=== PATIENT | male | born 1990 | race Caucasian/White ===

== ENCOUNTER 2021-01-01 09:55 | Inpatient (IN) | payer SELFPAY ==
[2021-01-01 10:08] VITALS: BP 147/90; PULSE 63; RESP 15; TEMP 36.6; O2SAT 97; BMI 21.1
[2021-01-01 10:20] VITALS: O2SAT 98
--- NOTE | 2021-01-01 10:26 | W.ED.PSYCH ---
HPI - Psych General: Chief Complaint: Psychiatric Symptoms Stated Complaint: MHE Time Seen by Provider: 01/01/21 10:11 Source: patient and family Mode of arrival: ambulatory Limitations: no limitations History of Present Illness: HPI Narrative: Patient is a 30-year-old male who presents to ED today with a complaint of depression and hallucinations. Patient tells me he takes Effexor for his depression but feels it is no longer working. He states he does have thoughts of wanting to harm himself. He states he often thinks of ways he could but always redirects himself away from the thoughts . He has no previous attempts. He has a diagnosis of schizophrenia and is not taking his risperidone as he did not like the medication. He does report auditory hallucinations of voices telling him to do stupid stuff . He tells me he does have homicidal thoughts-not toward any specific individual. Admits to marijuana use but no other drug use. No alcohol use. Patient tells me he is recently from his significant other whom he has children with. They are currently living in [place] and patient is here and is having significant stress over not seeing his children. MD complaint: suicidal ideation and feels depressed Onset (ago): day(s) Duration: constant History of same: Yes Relieving factors: none Exacerbating factors: none Context: not taking psychiatric medications and significant life stressor Associated psychiatric symptoms: depression, suicidal ideation, homicidal ideation, auditory hallucinations and visual hallucinations Associated symptoms: Reports auditory hallucinations, visual hallucinations, depression, homicidal ideation and suicidal ideation Treatments prior to arrival: none If self harm: admits thoughts of self harm Review of Systems Const: Denies: fever(s) or chills Card: Denies: chest pain, palpitations, lightheadedness or syncope Resp: Denies: dyspnea GI: Denies: abdominal pain, nausea, vomiting or diarrhea Skin/Breast: Denies: rash Neuro: Denies: headache(s) Psych: Reports: anxiety, depression, hopelessness, visual hallucinations, auditory hallucinations, suicidal ideation and homicidal ideation; Denies: panic attacks or paranoia [facility] ED PFSH: Social History (Updated 01/01/21 @ 10:17 by Ambrose Stephenson RN) Smoking and tobacco status: current every day smoker cigarettes Packs smoked per day: 1 Alcohol intake: former Substance/Drug Use: current Substance/Drug use type: Marijuana Physical Exam Const: COMMON NORMALS: no acute distress, patient oriented x3, alert and well nourished GENERAL APPEARANCE: cooperative and well kempt Resp: COMMON NORMALS: normal respiratory effort and clear to auscultation bilaterally AUSCULTATION: clear to auscultation bilaterally Cardio: COMMON NORMALS: regular rate and regular rhythm RATE: regular rate RHYTHM: regular rhythm Neuro: COMMON NORMALS: patient oriented x3 SENSORIUM/ORIENTATION: Yes alert Psych: COMMON NORMALS: mental status grossly normal, Normal thought process present, cooperative, normal affect, speech normal and activity/motor behavior normal APPEARANCE: Yes grossly normal and Yes well kempt ATTITUDE: Yes calm ACTIVITY/MOTOR BEHAVIOR: Yes appropriate eye contact and No psychomotor agitation SPEECH: Yes normal speech MOOD & AFFECT: Yes Flat affect present THOUGHT PROCESS: Normal thought process present THOUGHT CONTENT: Yes Normal thought content present ATTENTION/CONCENTRATION: Yes attention grossly intact and Yes concentration grossly intact MEMORY/COGNITION: Yes memory grossly intact and Yes cognition grossly intact INSIGHT: Good insight present (Psych) JUDGEMENT: Good judgement present (Psych) Course Consultations: Consultation #1: Dr. Go-accepts to NPU Vital Signs: Vital signs: Vital Signs Temperature 98 F 01/01/21 10:08 Pulse Rate 63 01/01/21 10:08 Respiratory Rate 15 01/01/21 10:08 Blood Pressure 147/90 01/01/21 10:08 Pulse Oximetry 98 01/01/21 10:20 MDM - Psych Lab Data: Labs: Lab Results 01/01/21 01/01/21 01/01/21 Range/Units 10:30 10:41 10:41 WBC 18.0 H (4.0-10.0) 10^3/ uL RBC 5.37 H (4.1-5.3) 10^6/u L Hgb 16.6 (11.7-16.6) g/dL Hct 49.0 (42.0-52.0) % MCV 91.2 (80-94) fL MCH 30.9 (28.0-34.0) pg MCHC 33.9 (30.0-36.0) g/dL RDW 12.6 (12.1-15.1) % Plt Count 270 (130-400) 10^3/c mm MPV 11.0 H (7.4-10.4) fL Neut % (Auto) 78.0 % Lymph % (Auto) 15.5 % [place] % (Auto) 5.2 % Eos % (Auto) 0.1 % Baso % (Auto) 0.8 % Neut # (Auto) 14.07 H (1.8-7.7) 10^3/u L Lymph # (Auto) 2.8 (0.8-4.8) 10^3/u L [place] # (Auto) 0.9 (0.2-0.9) 10^3/u L Eos # (Auto) 0.0 (0.0-0.8) 10^3/u L Baso # (Auto) 0.1 (0.0-0.1) 10^3/u L Nucleated RBC % (a uto) 0 % Nucleated RBCs # 0.0 /100WBC Sodium 138 (136-145) mmol/L Potassium 4.1 (3.5-5.1) mmol/L Chloride 101 (98-107) mmol/L Carbon Dioxide 29 (22-29) mmol/L Anion Gap 12.1 (5-19) BUN 12 (6-20) mg/dL Creatinine 0.7 (0.7-1.2) mg/dL GFR Calculation 133.3 H (90-130) mL/min Glucose 106 (65-115) mg/dL Calculated Osmolal ity 286 (285-295) mOsm/k g Calcium 9.1 (8.5-10.5) mg/dL Total Bilirubin 0.6 (0.15-1.2) mg/dL AST 18 (0-40) U/L ALT 18 (0-41) U/L Alkaline Phosphata se 96 (40-130) IU/L Total Protein 7.7 (6.6-8.7) g/dL Albumin 5.0 (3.5-5.2) g/dL Globulin 2.7 (1.3-4.6) g/dL Salicylates 0.6 L (3-10) mg/dL Urine Opiates Scre en Negative (Negative) ng/mL Acetaminophen < 5.0 L (10-30) ug/mL Ur Barbiturates Sc reen Negative (Negative) ng/mL Ur Phencyclidine S crn Negative (Negative) ng/mL Ur Amphetamines Sc reen Negative (Negative) ng/mL U Benzodiazepines Scrn Negative (Negative) ng/mL Urine Cocaine Scre en Negative (Negative) ng/mL U Marijuana (THC) Screen Positive H (Negative) ng/mL Ethyl Alcohol < 10 (0-10) mg/dL Discharge Plan Discharge Patient Disposition: Admitted As Inpatient Clinical Impression: Suicidal ideation, Auditory hallucinations Condition: Stable Prescriptions: No Action risperidone 1 mg tablet 1 mg PO BID RF: 0 venlafaxine 37.5 mg Capsule,Extended Release 24hr 37.5 mg PO DAILY RF: 0 Coding Level of Care Code ED Vamp Strap Ironer for Chg Fwd Exam Expanded Problem Focused
[2021-01-01 10:51] LABS: Basophils # 0.1 10^3/uL (0.0-0.1); Basophils % 0.8 %; Eosinophils % 0.1 %; Hemoglobin 16.6 g/dL (11.7-16.6); Lymphocytes # 2.8 10^3/uL (0.8-4.8); Lymphocytes % 15.5 %; Mean Corpuscular HGB Conc 33.9 g/dL (30.0-36.0); Mean Corpuscular Hemoglobin 30.9 pg (28.0-34.0); Mean Corpuscular Volume 91.2 fL (80-94); Monocytes # 0.9 10^3/uL (0.2-0.9); Monocytes % 5.2 %; Neutrophils # 14.07 10^3/uL (1.8-7.7); Nucleated Red Blood Cells % 0 %; Platelet Count 270 10^3/cmm (130-400); Red Blood Count 5.37 10^6/uL (4.1-5.3); Red Cell Distribution Width 12.6 % (12.1-15.1)
[2021-01-01 10:57] LABS: Amphetamines Screen Urine Negative (Negative); Barbiturates Screen Urine Negative (Negative); Benzodiazepines Screen Urine Negative (Negative); Cocaine Screen Urine Negative (Negative); Opiate Screen Urine Negative (Negative); PCP Screen Urine Negative (Negative); THC Screen Urine Positive (Negative)
[2021-01-01 11:11] LABS: Alanine Aminotransferase 18 U/L (0-41); Alkaline Phosphatase 96 IU/L (40-130); Anion Gap 12.1 (5-19); Aspartate Amino Transferase 18 U/L (0-40); Blood Urea Nitrogen 12 mg/dL (6-20); Calcium 9.1 mg/dL (8.5-10.5); Carbon Dioxide 29 mmol/L (22-29); Chloride 101 mmol/L (98-107); Globulin 2.7 g/dL (1.3-4.6); Glomerular Filtration Rate 133.3 mL/min (90-130); Glucose 106 mg/dL (65-115); Osmolality Calculated 286 mOsm/kg (285-295); Potassium 4.1 mmol/L (3.5-5.1); Salicylate 0.6 mg/dL (3-10); Sodium 138 mmol/L (136-145); Total Bilirubin 0.6 mg/dL (0.15-1.2); Total Protein 7.7 g/dL (6.6-8.7)
[2021-01-01 11:12] LABS: Acetaminophen < 5.0 ug/mL (10-30); Alcohol Level < 10 mg/dL (0-10)
[2021-01-01 13:40] VITALS: BP 164/103; PULSE 68; RESP 18; TEMP 37; O2SAT 97
[2021-01-01 20:23] VITALS: BP 143/96; PULSE 64; RESP 14; TEMP 37; O2SAT 96
[2021-01-01] MEDS: nicotine 2 mg Gum BUCCAL (23:32)
[2021-01-02 06:00] VITALS: BP 140/96; PULSE 73; RESP 15; TEMP 37.1; O2SAT 96
--- NOTE | 2021-01-02 10:45 | P.SS_ITS ---
Short Stay Summary Providers Date of Admit/Discharge: 01/02/21 Attending Provider: Elbert Ellis DO Chief Complaint: MHE HPI History of Present Illness Coleman Chavarria is a 30 year old male with unclear past psychiatric history presenting to the emergency department in the context of cannabis intoxication reporting depressive symptoms and auditory hallucinations which appears to be consistent with substance-induced mood/psychosis. Review of Systems General: Reports: 10 or more systems reviewed and unremarkable except in HPI and below Home Meds/Allergies Home Medications and Allergies Home Medications Medication Instructions Recorded Confirmed Type risperidone 1 mg tablet 1 mg PO BID 01/01/21 01/01/21 History venlafaxine 37.5 mg PO DAILY 01/01/21 01/01/21 History Allergies Allergy/AdvReac Type Severity Reaction Status Date / Time No Known Allergies Allergy Verified 01/01/21 10:45 PFSH Acute PFSH: Social History Smoking and tobacco status: current every day smoker cigarettes Packs smoked per day: 1 Alcohol intake: former Vitals/I&O/Wt Last Vital Signs Temp 98.7 F 01/02/21 06:00 Pulse 73 01/02/21 06:00 Resp 15 01/02/21 06:00 BP 140/96 01/02/21 06:00 Pulse Ox 96 01/02/21 06:00 Weight last 48 hrs Weight 61.235 kg Physical Exam Narrative: EXAM NARRATIVE: MSE: Appears older than stated age, unkempt, longer hair, unkempt, sitting up in bed, wearing hospital scrubs, calm, cooperative, interactive, good eye contact Psychomotor activity is neither increased or decreased, no agitation Speech is somewhat slow, hesitant, spontaneous, clear articulation, normal volume, not pressured I feel much better, full range of affect, not labile Alert and oriented to person, place, time, situation Memory and concentration appear to be intact per interview Intellectual functioning appears to be average at best based on vocabulary, interview Thought process, linear, no flight of ideas, no looseness of associations Thought content, no delusions, no hallucinations, does not appear to be attending to any internal stimuli nor does he appear to be internally preoccupied, no suicidal or homicidal ideation Insight and judgment appear to be intact Hospital Course Hospital Course Patient quickly reconstituted denying any suicidal ideation the following day at the time of initial evaluation and states that he has not been taking medication but has seen someone in the past for his symptoms. Patient reports that he continues to smoke marijuana on a near daily basis. Patient reports inconsistent employment stating last job was a week ago and that he had only been employed there for a couple weeks and has been unable to hold a job long- term secondary to ongoing substance related symptoms. Patient reports that he had previously been on medication but has not been compliant and has not been taking his medication. Patient participated in unit milieu with no reports of behavioral disturbances. Patient communicates that he will follow-up with outpatient primary care for medication management follow-up. Patient was not suicidal and was not endorsing any psychotic symptoms at the time of discharge and did not appear to pose an imminent threat of harm to self or others at the time of discharge. Low to moderate risk of harm to self or others given no current suicidal ideation and no current psychotic symptoms although patient's risk may be elevated if he continues to abuse substances or is noncompliant with his medication medication management follow-up leading to unexpected, impulsive behavior. Risk mitigation included psychiatric hospitalization for observation for any return or persistence of psychotic symptoms or suicidal ideation which subsequently resolved, recommendation to abstain from use of substances and alcohol as well as recommendation to follow-up with outpatient substance counseling/treatment and compliance with medication. Patient communicated his understanding of the need to abstain from use of substances and alcohol as well as the need for compliance with outpatient substance counseling/treatment in order to further mitigate his risk of harm to self and others. Diagnoses at Discharge Discharge Diagnosis (1) Suicidal ideation: Status: Acute (2) Substance-induced psychotic disorder: Status: Acute Discharge Plan Discharge Patient Disposition: Home Condition: Stable Prescriptions: Continued risperidone 1 mg tablet 1 mg PO BID RF: 0 venlafaxine 37.5 mg Capsule,Extended Release 24hr 37.5 mg PO DAILY RF: 0 Discharge Orders: Discharge Order (Routine); Ordered 01/02/21 Ordered By: Elbert lElis Referrals: Leyla Branch PMHNP [Staff Physician] - Discharge Activity: Resume usual activity Patient Instructions: Generalized Anxiety Disorder (DC), Opioid Safety Attestations Medical Necessity Statement*: Inpatient psychiatric hospitalization on Medicaid at this time, patient would most benefit from outpatient substance counseling/treatment in conjunction with outpatient medication management at this time Time Spent in Patient Care*: greater than 30 min Status at Discharge: Cognitive status at discharge: cognitively intact , Behavioral status at discharge: cooperative , Functional status at discharge: independent ambulation Overall status at discharge: patient is back to baseline Quality Metrics Clinical Quality Measures: During this hospital stay, did patient experience: None Coding Level of Care Code Acute Train Director for Will Fwd Diagnoses Suicidal ideation R45.851 Substance-induced psychotic disorder F19.959
[2021-01-02 10:49] VITALS: BP 140/96; PULSE 73; RESP 15; TEMP 37.1; O2SAT 96
--- NOTE | 2021-01-03 11:31 | PC.RESP ---
SMOKING CESSATION INFORMATION SENT TO PATIENT.
== END 2021-01-02 13:37 | disposition home or self-care (01) | DRG 897 ==
LOC: ER 11:20 → NP 12:53
PROVIDERS: Admitting Provider Psychiatry & Neurology Psychiatry; Emergency Provider Physician Assistant; Visit Provider Psychiatry & Neurology Psychiatry
DX: F12.259 Cannabis dependence with psychotic disorder, unspecified (principal); R45.851 Suicidal ideations; F17.210 Nicotine dependence, cigarettes, uncomplicated
CPT/HCPCS: 36415; 80053; 80306; 80307; 85025; 99285

== ENCOUNTER 2021-03-08 18:43 | Emergency (ER) | payer SELFPAY ==
[2021-03-08 19:01] VITALS: BP 122/86; PULSE 70; RESP 15; TEMP 37.5; O2SAT 97; BMI 22.7
--- NOTE | 2021-03-08 23:26 | ED_ITS ---
HPI - Skin/Abscess/Foreign Bdy General: Chief complaint: Skin/Abscess/Foreign Body Stated complaint: L SIDE FACIAL SWELLING S/P INSECT BITE Time Seen by Provider: 03/08/21 23:03 History of Present Illness: HPI narrative: Patient comes in with left lower lip swelling and tenderness. Patient has significant redness and discomfort to the lip for the last 2 days. Patient had taken 1 dose antibiotic Leftover at home. Patient is alert and oriented. Patient denies any other medical issues. Review of Systems General: Reports: 10 or more systems reviewed and unremarkable except in HPI and below Skin/Breast: Reports: other (Redness and swelling to lip) PFS ED PFSH: Medical History (Updated 03/09/21 @ 00:10 by AMANDA Monroy) Borderline intellectual functioning Cannabis dependence with current use Major depressive disorder, recurrent, severe with psychotic symptoms Social History Smoking and tobacco status: current every day smoker cigarettes Packs smoked per day: 1 Alcohol intake: former Physical Exam Const: COMMON NORMALS: no acute distress and patient oriented x3 GENERAL APPEARANCE: cooperative HENMT: COMMON NORMALS: normocephalic and Normal external nose present HEAD & SCALP: normal to inspection and normocephalic NOSE: Normal external nose present MOUTH: Normal oral and palatal mucosa present and other (Redness and swelling to the left lower lip noticeable abscess) THROAT: posterior oropharynx normal Eye: GENERAL EYE: appearance normal, both eyes and all related structures Neck/C-Spine: COMMON NORMALS: full ROM Chest: COMMONS NORMALS: normal inspection of the chest Resp: COMMON NORMALS: normal respiratory effort EFFORT & INSPECTION: Yes able to speak in complete sentences Cardio: COMMON NORMALS: regular rate and regular rhythm RATE: regular rate RHYTHM: regular rhythm GI: COMMON NORMALS: non-tender : COMMON NORMALS: Yes no CVA tenderness BLADDER/KIDNEY EXAM: Yes no CVA tenderness Back/Pelvis: COMMON NORMALS: no CVA tenderness and thoracic and lumbar spine normal to inspection Extremity: COMMON NORMALS: normal to inspection Neuro: COMMON NORMALS: patient oriented x3 and moves all extremities Psych: COMMON NORMALS: mental status grossly normal and cooperative Skin: COMMON NORMALS: no rashes or lesions noted GENERAL SKIN EXAM: no rashes or lesions noted Procedures Abscess I/D Site: lip Side (if applicable): left Local Anesthetic: lidocaine 1% and with epi Amount of anesthesia used (mL): 4 Technique: incised with #11 blade Amount of fluid expressed (mL): 3 Irrigation: Yes Packing used?: none Course Vital Signs: Vital signs: Vital Signs Temperature 99.5 F 03/08/21 19:01 Pulse Rate 70 03/08/21 19:01 Respiratory Rate 15 03/08/21 19:01 Blood Pressure 122/86 03/08/21 19:01 Pulse Oximetry 97 03/08/21 19:01 MDM - Skin/Abscess/Foreign Bdy MDM Narrative: Medical decision making narrative: Patient comes in with a swelling and tenderness to the left lower lip. On exam we note a fluctuant mass suggestive of abscess. Patient also had some significant redness and induration to the area. Differential diagnosis includes cellulitis, abscess, dental infection. I&D was performed on the lip with a large amount of purulent drainage and exudate from the wound site. Patient tolerated procedure well. Patient be continued on antibiotics clindamycin 450 mg 3 times a day for the next 7 days. Encourage plenty of fluids and follow-up with primary care for further evaluation and treatment. Patient should return to the ER for worsening symptoms. Patient reported understanding. Discharge Plan Discharge Patient Disposition: Home Clinical Impression: Abscess of face Condition: Stable Prescriptions: New hydrocodone-acetaminophen 5-325 mg tablet 1 tab PO TID PRN (Reason: pain (scale score 7-10)) Qty: 5 RF: 0 clindamycin HCl 150 mg capsule 450 mg PO Q8H 7 Days Qty: 63 RF: 0 No Action venlafaxine 37.5 mg capsule,extended release 24hr 37.5 mg PO DAILY Qty: 30 RF: 2 risperidone 1 mg tablet 1 mg PO BID Qty: 60 RF: 2 Discharge Orders: Discharge ED (Routine); Ordered 03/09/21 Ordered By: Wisam Garcia Discharge Diet: Usual diet Discharge Activity: Increase activity as tolerated Patient Instructions: Abscess Incision and Drainage (ED), Opioid Safety Activity Restrictions/Additional Instructions: Take antibiotics as directed. Use warm moist packs to the area. Drink plenty of water with antibiotics. Follow-up with primary care for further instruction. Return to the ER for worsening symptoms or new concerns. Coding Level of Care Code ED Half Section Ironer for Will Vargas
[2021-03-09] MEDS: clindamycin 150 mg Capsule 450 MG PO (00:50)
[2021-03-09] MEDS: HYDROcodone-acetaminophen 7.5-325 mg Tablet 1 TAB PO (00:51)
[2021-03-09 01:36] VITALS: BP 146/95; PULSE 58; RESP 16; O2SAT 97
== END 2021-03-09 01:38 | disposition home or self-care (01) ==
PROVIDERS: Emergency Provider Nurse Practitioner Family
DX: L02.01 Cutaneous abscess of face (principal); F17.210 Nicotine dependence, cigarettes, uncomplicated
CPT/HCPCS: 10060; 99283

== ENCOUNTER 2022-04-07 17:53 | Inpatient (IN) | payer SELFPAY ==
[2022-04-07 18:03] VITALS: BP 137/94; PULSE 69; RESP 16; TEMP 36.6; O2SAT 98; BMI 21.9
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
[2022-04-07 18:52] LABS: Basophils # 0.1 10^3/uL (0.0-0.1); Basophils % 0.4 %; Eosinophils % 0.1 %; Hematocrit 42.2 % (42.0-52.0); Hemoglobin 14.4 g/dL (11.7-16.6); Lymphocytes # 2.2 10^3/uL (0.8-4.8); Lymphocytes % 11.4 %; Mean Corpuscular HGB Conc 34.1 g/dL (30.0-36.0); Mean Corpuscular Hemoglobin 31.2 pg (28.0-34.0); Mean Corpuscular Volume 91.5 fl (80-94); Mean Platelet Volume 11.4 fL (7.4-10.4); Monocytes # 1.1 10^3/uL (0.2-0.9); Monocytes % 5.5 %; Neutrophils # 15.78 10^3/uL (1.8-7.7); Neutrophils % 82.2 %; Nucleated Red Blood Cells % 0 %; Platelet Count 240 10^3/cmm (130-400); Red Blood Count 4.61 10^6/uL (4.1-5.3); Red Cell Distribution Width 12.5 % (12.1-15.1); White Blood Count 19.2 10^3/uL (4.0-10.0)
--- NOTE | 2022-04-07 19:03 | PC.NURSE ---
assumed care of patient at this time.
[2022-04-07 19:14] LABS: Alanine Aminotransferase 22 U/L (0-41); Albumin Level 4.4 g/dL (3.5-5.2); Alkaline Phosphatase 92 IU/L (40-130); Aspartate Amino Transferase 22 U/L (0-40); Blood Urea Nitrogen 13 mg/dL (6-20); Calcium 8.9 mg/dL (8.5-10.5); Carbon Dioxide 24 mmol/L (22-29); Chloride 100 mmol/L (98-107); Globulin 2.7 g/dL (1.3-4.6); Glomerular Filtration Rate 113.5 mL/min (90-130); Glucose 92 mg/dL (65-115); Lipase 28 U/L (13-60); Osmolality Calculated 286 mOsm/kg (285-295); Sodium 138 mmol/L (136-145); Total Bilirubin 0.3 mg/dL (0.15-1.2); Total Protein 7.1 g/dL (6.6-8.7)
[2022-04-07 19:16] LABS: Acetaminophen < 5.0 ug/mL (10-30); Alcohol Level < 10 mg/dL (0-10); Anion Gap 18.7 (5-19); Potassium 4.7 mmol/L (3.5-5.1); Salicylate < 0.3 mg/dL (3-10)
--- NOTE | 2022-04-07 19:19 | PC.NURSE ---
discussed care with Dr. Leone, will continue with plan to admit on 96 hour hold to neuropsych unit in this facility. patient is calm, cooperative at this time. awaiting pt to provide urine sample.
--- NOTE | 2022-04-07 20:20 | PC.NURSE ---
attempted to call report to N[facility], states that nurse is in patient room and will call back.
--- NOTE | 2022-04-07 20:36 | PC.NURSE ---
clear yellow urine taken per protocol by charge entry specialist chris, taken to lab, followed per protocol.
--- NOTE | 2022-04-07 20:39 | PC.NURSE ---
report called to Liu BAUTISTA with neuropsych unit. accepted to room 154-1.
[2022-04-07 20:49] VITALS: BP 137/82; PULSE 65; RESP 18; TEMP 36.7; O2SAT 98
[2022-04-07 20:51] LABS: Amphetamines Screen Urine Negative (Negative); Barbiturates Screen Urine Negative (Negative); Benzodiazepines Screen Urine Negative (Negative); Cocaine Screen Urine Negative (Negative); Opiate Screen Urine Negative (Negative); PCP Screen Urine Negative (Negative); THC Screen Urine Positive (Negative)
[2022-04-07] MEDS: nicotine 2 mg Gum BUCCAL (21:52)
[2022-04-07 22:00] VITALS: BP 137/82; PULSE 65; RESP 18; TEMP 36.7; O2SAT 98
[2022-04-08 06:00] VITALS: BP 134/81; PULSE 54; RESP 17; TEMP 36.6; O2SAT 98
[2022-04-08 14:00] VITALS: BP 130/85; PULSE 58; RESP 16; O2SAT 97
[2022-04-08] MEDS: nicotine 2 mg Gum BUCCAL (15:23)
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
[2022-04-08] MEDS: ARIPiprazole 10 mg Tablet 5 MG PO (18:27)
[2022-04-08 20:44] VITALS: BP 125/81; PULSE 57; RESP 16; TEMP 36.6; O2SAT 98
[2022-04-09 06:00] VITALS: BP 134/88; PULSE 74; RESP 17; TEMP 36.6; O2SAT 98
[2022-04-09] MEDS: ARIPiprazole 10 mg Tablet 5 MG PO (09:16)
[2022-04-09] MEDS: nicotine 2 mg Gum BUCCAL ×3 (09:17→20:45)
[2022-04-09 14:00] VITALS: BP 140/92; PULSE 65; RESP 18; TEMP 37.1; O2SAT 99
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
[2022-04-09 20:42] VITALS: BP 147/86; PULSE 63; RESP 16; TEMP 36.8; O2SAT 99
[2022-04-10 06:00] VITALS: BP 149/90; PULSE 65; RESP 17; TEMP 36.8; O2SAT 98
[2022-04-10] MEDS: ARIPiprazole 10 mg Tablet 5 MG PO (09:43)
[2022-04-10] MEDS: nicotine 2 mg Gum BUCCAL ×2 (12:37→17:04)
[2022-04-10 14:00] VITALS: BP 154/86; PULSE 55; RESP 18; TEMP 36.6; O2SAT 97
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
[2022-04-10 20:01] VITALS: BP 144/89; PULSE 56; RESP 18; O2SAT 97
[2022-04-11 06:00] VITALS: BP 128/77; PULSE 64; RESP 18; O2SAT 98
[2022-04-11] MEDS: ARIPiprazole 10 mg Tablet 5 MG PO (08:58)
[2022-04-11] MEDS: nicotine 2 mg Gum BUCCAL (08:59)
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
[2022-04-11 11:37] VITALS: BP 128/77; PULSE 64; RESP 18; O2SAT 98
[2022-04-11 13:48] VITALS: BP 134/87; PULSE 55; RESP 16; TEMP 36.6; O2SAT 98
== END 2022-04-11 14:17 | disposition home or self-care (01) | DRG 885 ==
LOC: ER 18:29 → NP 20:55
PROVIDERS: Admitting Provider Psychiatry & Neurology Psychiatry; Emergency Provider Emergency Medicine; Visit Provider Psychiatry & Neurology Psychiatry
DX: F33.3 Major depressive disorder, recurrent, severe with psychotic symptoms (principal); F12.20 Cannabis dependence, uncomplicated; Z81.8 Family history of other mental and behavioral disorders; F17.210 Nicotine dependence, cigarettes, uncomplicated; F91.1 Conduct disorder, childhood-onset type
CPT/HCPCS: 80053; 80306; 80307; 83690; 85025; 97150; 97165; 99285

== ENCOUNTER 2023-03-03 17:41 | Emergency (ER) | payer SELFPAY ==
[2023-03-03 17:43] VITALS: BP 161/93; PULSE 78; RESP 18; TEMP 36.6; O2SAT 100; BMI 21.1
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
--- NOTE | 2023-03-03 18:16 | ECG_ITS ---
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 Measurements Intervals [place] Rate: 84 P: 72 OR: 128 QRS: 88 QRSD: 92 T: 73 QT: 371 QTc: 439 Interpretive Statements SINUS RHYTHM Compared to ECG 11/30/2016 01:29:24 Sinus bradycardia no longer present ST (T wave) deviation no longer present Early repolarization no longer present Electronically Signed On 03-04-2023 12:17:03 CDT by Matheus West M.D. [id number]
--- NOTE | 2023-03-03 18:16 | XRR_ITS ---
PROCEDURE INFORMATION: Exam: XR Chest Exam date and time: 03/03/2023 6:21 PM Age: 32 years old Clinical indication: Chest wall pain; Additional info: Cp, meth TECHNIQUE: Imaging protocol: Radiologic exam of the chest. Views: 1 view. COMPARISON: CR XR chest 1V [id number] 11/30/2016 1:48 AM FINDINGS: Lungs: Lungs are clear bilaterally. Pleural spaces: No pleural effusion. No pneumothorax. Heart/Mediastinum: The cardiac silhouette and mediastinal contours are unremarkable. Bones/joints: Unremarkable for age. XR/XR chest 1V portable [id number] IMPRESSION: Negative chest radiograph.
[2023-03-03 18:47] VITALS: BP 166/94; PULSE 84; RESP 18; O2SAT 99
[2023-03-03] MEDS: LORazepam 2 mg/mL INJ 1 mL 1 MG IVP ×2 (18:55→19:24)
[2023-03-03 19:19] VITALS: BP 161/90; PULSE 87; RESP 22; O2SAT 98
[2023-03-03] MEDS: sodium chloride 0.9% 1,000 ML 999 ML IV (19:21)
[2023-03-03 19:29] LABS: Basophils # 0.1 10^3/uL (0.0-0.1); Basophils % 0.3 %; Hematocrit 43.7 % (42.0-52.0); Hemoglobin 14.8 g/dL (11.7-16.6); Lymphocytes # 3.9 10^3/uL (0.8-4.8); Lymphocytes % 23.7 %; Mean Corpuscular HGB Conc 33.9 g/dL (30.0-36.0); Mean Corpuscular Hemoglobin 29.7 pg (28.0-34.0); Mean Corpuscular Volume 87.8 fl (80-94); Monocytes # 1.2 10^3/uL (0.2-0.9); Monocytes % 7.3 %; Neutrophils # 11.18 10^3/uL (1.8-7.7); Neutrophils % 68.4 %; Nucleated Red Blood Cells % 0 %; Platelet Count 218 10^3/cmm (130-400); Red Blood Count 4.98 10^6/uL (4.1-5.3); Red Cell Distribution Width 12.2 % (12.1-15.1); White Blood Count 16.4 10^3/uL (4.0-10.0)
[2023-03-03 19:50] LABS: Anion Gap 18.2 (5-19); Blood Urea Nitrogen 8 mg/dL (6-20); Carbon Dioxide 21 mmol/L (22-29); Chloride 101 mmol/L (98-107); Glomerular Filtration Rate 131.5 mL/min (90-130); Glucose 96 mg/dL (65-115); Osmolality Calculated 282 mOsm/kg (285-295); Potassium 3.2 mmol/L (3.5-5.1); Sodium 137 mmol/L (136-145)
[2023-03-03] MEDS: potassium chloride oral liq 20 mEq/15 mL UDC 40 MEQ PO (20:22)
[2023-03-03 21:09] VITALS: BP 143/106; PULSE 99; RESP 16; O2SAT 98
== END 2023-03-03 21:10 | disposition home or self-care (01) ==
PROVIDERS: Emergency Provider Emergency Medicine
DX: R41.82 Altered mental status, unspecified (principal); F15.10 Other stimulant abuse, uncomplicated; E86.0 Dehydration; E87.6 Hypokalemia
CPT/HCPCS: 36415; 71045; 80048; 85025; 93005; 96374; 96376; 99285; J2060; J7030

== ENCOUNTER 2023-05-03 19:35 | Emergency (ER) | payer SELFPAY ==
[2023-05-03 19:36] VITALS: BP 168/115; PULSE 88; RESP 18; TEMP 36.2; O2SAT 100; BMI 20.3
[2023-05-03 19:43] VITALS: BP 154/100; RESP 18; O2SAT 98
--- NOTE | 2023-05-03 19:49 | ECG_ITS ---
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 Measurements Intervals [place] Rate: 82 P: 66 FL: 120 QRS: 87 QRSD: 93 T: 62 QT: 340 QTc: 399 Interpretive Statements SINUS RHYTHM Compared to ECG 03/03/2023 18:31:22 No significant changes Electronically Signed On 05-04-2023 12:05:51 CDT by Matheus West M.D. [email or web address] [email or web address].PO[employer]MO/store/NU/[id number] f
--- NOTE | 2023-05-03 19:52 | XRR_ITS ---
PROCEDURE INFORMATION: Exam: XR Chest Exam date and time: 05/03/2023 8:14 PM Age: 32 years old Clinical indication: Pain; Chest pressure; Additional info: Chest pain TECHNIQUE: Imaging protocol: Radiologic exam of the chest. Views: 1 view. COMPARISON: No relevant prior studies available. FINDINGS: Lungs: Unremarkable. No consolidation. Pleural spaces: Unremarkable. No pleural effusion. No pneumothorax. Heart/Mediastinum: Unremarkable. No cardiomegaly. Bones/joints: Unremarkable. XR/XR chest 1V portable [id number] IMPRESSION: No acute findings.
--- NOTE | 2023-05-03 19:53 | ED_ITS ---
HPI - Chest Pain General: Chief Complaint: Chest Pain Stated Complaint: chest/neck pain Time Seen by Provider: 05/03/23 19:42 Source: patient and EMS Mode of arrival: EMS Limitations: no limitations History of Present Illness: See nursing assessment. Patient with complaints of feeling like his neck veins are going to pop. He also complained of chest pain to the nurse but denied any chest pain to me. He did admit to methamphetamine use about a week ago. See previous ER visit in February. Patient denies any shortness of breath. Denies any headache. Denies any neurological changes. Patient appears anxious. Presents with EMS on a cot. Denies any trauma. Associated symptoms: Deny abdominal pain, dyspnea, fever(s), nausea, palpitations or vomiting Review of Systems Const: Denies: fever(s) or chills Eyes: Denies: change in vision ENMT: Denies: throat pain Card: Reports: chest pain; Denies: palpitations, irregular heart rhythm or edema Resp: Denies: dyspnea, productive cough, non-productive cough, wheezing, stridor or pain on inspiration GI: Denies: abdominal pain, nausea or vomiting : Denies: flank pain Musc: Reports: neck pain (Left lateral neck pain); Denies: back pain Skin/Breast: Denies: rash or pruritus Neuro: Denies: headache(s) or numbness in extremities Psych: Reports: anxiety; Denies: depression Julio/Lymph: Denies: enlarged lymph nodes [facility] ED PFSH: Medical History Borderline intellectual functioning Cannabis dependence with current use Major depressive disorder, recurrent, severe with psychotic symptoms Social History Smoking and tobacco status: current every day smoker cigarettes Packs smoked per day: 1 Alcohol intake: former Substance/Drug Use: current Supplemental [facility] Information: Patient admits to methamphetamine use. He states he smokes marijuana frequently Physical Exam Const: COMMON NORMALS: no acute distress, patient oriented x3, no limitations and well nourished GENERAL APPEARANCE: cooperative HENMT: COMMON NORMALS: normocephalic and atraumatic HEAD & SCALP: normocephalic and atraumatic FACE & SINUS: normal facial exam Eye: COMMON NORMALS: EOMs intact bilaterally Neck/C-Spine: COMMON NORMALS: full ROM, no lymphadenopathy, supple and no me ningeal signs GENERAL: Yes normal visual inspection OTHER: Neck appears normal. No soft tissue swelling. Carotid pulses normal. No deformities noted Lymph: LYMPHATIC: no lymphadenopathy noted Chest: COMMONS NORMALS: normal inspection of the chest and normal palpation of entire chest wall CHEST: No Ecchymosis present and No rash Resp: COMMON NORMALS: normal respiratory effort, No retractions and clear to auscultation bilaterally EFFORT & INSPECTION: No respiratory distress AUSCULTATION: clear to auscultation bilaterally Cardio: COMMON NORMALS: regular rate, regular rhythm and Peripheral pulses 2+ throughout JUGULAR VENOUS DISTENTION: no JVD RATE: regular rate RHYTHM: regular rhythm PERIPHERAL PULSES: Peripheral pulses 2+ throughout GI: COMMON NORMALS: Normal to inspection, nondistended, normoactive bowel sounds present, Soft to palpation, non-tender, No hepatosplenomegaly present and no masses PALPATION: Yes Soft to palpation and Yes No hepatosplenomegaly present : COMMON NORMALS: Yes no CVA tenderness BLADDER/KIDNEY EXAM: Yes no CVA tenderness Back/Pelvis: COMMON NORMALS: no CVA tenderness Extremity: COMMON NORMALS: normal to inspection, full ROM and capillary refill normal Neuro: COMMON NORMALS: patient oriented x3, CN's II-XII intact bilaterally, no focal motor deficits and no sensory deficits noted MENINGEAL SIGNS: Yes no meningeal signs Psych: COMMON NORMALS: mental status grossly normal and cooperative OTHER: Patient is anxious. He appears to be under the influence of stimulant. Skin: COMMON NORMALS: no rashes or lesions noted and no wounds GENERAL SKIN EXAM: no rashes or lesions noted Course Vital Signs: Vital signs: Vital Signs Temperature 97.1 F L 05/03/23 19:36 Pulse Rate 84 05/03/23 20:00 Respiratory Rate 18 05/03/23 19:43 Blood Pressure 154/100 05/03/23 19:43 Pulse Oximetry 97 05/03/23 20:00 Oxygen Delivery Me thod Room Air 05/03/23 20:00 MDM - Chest Pain Medical Decision Making 32-year-old male with history of frequent illicit drug use with complaints of neck vein about the pop open. Patient appears to be under the influence of a stimulant. Differential diagnoses include illicit drug use, musculoskeletal pain. 2043: Patient states he feels much better. His anxiety has decreased dramatically. I suspect maybe his marijuana is contaminated with some kind of stimulant or he is having panic attacks. Lab Data 05/03/23 20:10 05/03/23 20:10 Radiology Impressions Chest X-Ray 05/03/23 19:52 IMPRESSION: No acute findings. Laboratory Results WBC 9.85 10^3/uL (3.29-11.43) 05/03/23 20:10 RBC 5.60 10^6/uL (3.85-5.65) 05/03/23 20:10 Hgb 16.80 g/dL (11.27-16.99) 05/03/23 20:10 Hct 49.0 % (37-53) 05/03/23 20:10 MCV 87.5 fl (82-101) 05/03/23 20:10 MCH 30.0 pg (27-33) 05/03/23 20:10 MCHC 34.3 g/dL (30-55) 05/03/23 20:10 RDW 12.4 % (12.1-15.1) 05/03/23 20:10 Plt Count 233 10^3/cmm (157-399) 05/03/23 20:10 MPV 10.7 fL (7.4-10.4) H 05/03/23 20:10 Neut % (Auto) 54.7 % 05/03/23 20:10 Lymph % (Auto) 35.2 % 05/03/23 20:10 Kendall % (Auto) 8.7 % 05/03/23 20:10 Eos % (Auto) 0.3 % 05/03/23 20:10 Baso % (Auto) 0.8 % 05/03/23 20:10 Neut # (Auto) 5.38 10^3/uL (1.8-7.7) 05/03/23 20:10 Lymph # (Auto) 3.5 10^3/uL (0.8-4.8) 05/03/23 20:10 Kendall # (Auto) 0.9 10^3/uL (0.2-0.9) 05/03/23 20:10 Eos # (Auto) 0.0 10^3/uL (0.0-0.8) 05/03/23 20:10 Baso # (Auto) 0.1 10^3/uL (0.0-0.1) 05/03/23 20:10 Nucleated RBC % (auto) 0 % 05/03/23 20:10 Nucleated RBCs # 0.0 /100WBC 05/03/23 20:10 Sodium 138 mmol/L (136-145) 05/03/23 20:10 Potassium 4.0 mmol/L (3.5-5.1) 05/03/23 20:10 Chloride 99 mmol/L (98-107) 05/03/23 20:10 Carbon Dioxide 27 mmol/L (22-29) 05/03/23 20:10 Anion Gap 16.0 (5-19) 05/03/23 20:10 BUN 19 mg/dL (6-20) 05/03/23 20:10 Creatinine 0.8 mg/dL (0.7-1.2) 05/03/23 20:10 GFR Calculation 112.8 mL/min (90-130) 05/03/23 20:10 Glucose 110 mg/dL (65-115) 05/03/23 20:10 Calculated Osmolality 289 mOsm/kg (285-295) 05/03/23 20:10 Calcium 10.5 mg/dL (8.5-10.5) 05/03/23 20:10 Troponin T Baseline 6 ng/L (0-15) 05/03/23 20:10 Urine Opiates Screen Negative ng/mL (Negative) 05/03/23 20:00 Ur Barbiturates Screen Negative ng/mL (Negative) 05/03/23 20:00 Ur Phencyclidine Scrn Negative ng/mL (Negative) 05/03/23 20:00 Ur Amphetamines Screen Negative ng/mL (Negative) 05/03/23 20:00 U Benzodiazepines Scrn Negative ng/mL (Negative) 05/03/23 20:00 Urine Cocaine Screen Negative ng/mL (Negative) 05/03/23 20:00 U Marijuana (THC) Screen Positive ng/mL (Negative) H 05/03/23 20:00 Imaging Data CXR: I personally reviewed and interpreted this imaging study as follows: My impression: Portable chest x-ray appears normal. EKG Data EKG 1: I personally reviewed and interpreted this EKG as follows: EKG interpretation date: 05/03/23 EKG interpretation time: 19:51 Interpretation: Impression normal sinus rhythm heart rate of 82. LVH. Normal P waves and normal T waves, normal [place] interval, normal QT interval, normal ST segment. Discharge Plan Discharge Patient Disposition: Home Clinical Impression: Panic attacks, Marijuana abuse, continuous, Hypertension Condition: Stable Prescriptions: New losartan 25 mg tablet 25 mg PO DAILY Qty: 30 2RF Rx Instructions: for high blood pressure lorazepam 0.5 mg tablet 0.5 mg PO Q8H PRN (Reason: Anxiety or panic attack) Qty: 10 0RF Rx Instructions: Do not use any other medications or alcohol with this medication. No Action aripiprazole 10 mg Tablet 5 mg PO DAILY 30 Days Qty: 15 1RF Discharge Orders: Discharge ED (Routine); Ordered 05/03/23 Ordered By: [place] Discharge Diet: Cardiac Discharge Activity: Increase activity as tolerated Patient Instructions: Cannabis Use Disorder (ED), Hypertension (ED), Panic Attack (ED) Activity Restrictions/Additional Instructions: Avoid any added salt or caffeine due to your high blood pressure. Take losartan medication daily to help control your high blood pressure. Avoid any stimulants. May take lorazepam 1 tablet every 8 hours as needed for anxiety or panic attack. Do not drink any alcohol or use any other drugs when you take this medication. Coding Level of Care Code ED Human Development Professor for Will Vargas
[2023-05-03 20:00] VITALS: PULSE 84; O2SAT 97
[2023-05-03 20:19] LABS: Amphetamines Screen Urine Negative (Negative); Barbiturates Screen Urine Negative (Negative); Benzodiazepines Screen Urine Negative (Negative); Cocaine Screen Urine Negative (Negative); Opiate Screen Urine Negative (Negative); PCP Screen Urine Negative (Negative); THC Screen Urine Positive (Negative)
[2023-05-03 20:23] LABS: Basophils # 0.1 10^3/uL (0.0-0.1); Basophils % 0.8 %; Eosinophils % 0.3 %; Lymphocytes # 3.5 10^3/uL (0.8-4.8); Lymphocytes % 35.2 %; Mean Corpuscular HGB Conc 34.3 g/dL (30-55); Mean Corpuscular Volume 87.5 fl (82-101); Mean Platelet Volume 10.7 fL (7.4-10.4); Monocytes # 0.9 10^3/uL (0.2-0.9); Monocytes % 8.7 %; Neutrophils # 5.38 10^3/uL (1.8-7.7); Neutrophils % 54.7 %; Nucleated Red Blood Cells % 0 %; Platelet Count 233 10^3/cmm (157-399); Red Cell Distribution Width 12.4 % (12.1-15.1); White Blood Count 9.85 10^3/uL (3.29-11.43)
[2023-05-03 20:35] LABS: Troponin(5th) Baseline 6 ng/L (0-15)
[2023-05-03 20:38] LABS: Blood Urea Nitrogen 19 mg/dL (6-20); Calcium 10.5 mg/dL (8.5-10.5); Carbon Dioxide 27 mmol/L (22-29); Chloride 99 mmol/L (98-107); Glomerular Filtration Rate 112.8 mL/min (90-130); Glucose 110 mg/dL (65-115); Osmolality Calculated 289 mOsm/kg (285-295); Sodium 138 mmol/L (136-145)
[2023-05-03 21:03] VITALS: PULSE 78; RESP 22; O2SAT 99
== END 2023-05-03 21:03 | disposition home or self-care (01) ==
PROVIDERS: Emergency Provider Family Medicine
DX: F41.0 Panic disorder [episodic paroxysmal anxiety] (principal); F12.10 Cannabis abuse, uncomplicated; I10 Essential (primary) hypertension; F17.210 Nicotine dependence, cigarettes, uncomplicated
CPT/HCPCS: 71045; 80048; 80306; 84484; 85025; 93005; 99285

== ENCOUNTER 2025-03-09 18:34 | Inpatient (IN) | payer OTHER, MEDICAID, SELFPAY ==
[2025-03-09 18:34] VITALS: BP 148/92; PULSE 81; RESP 16; TEMP 36.6; O2SAT 97
--- NOTE | 2025-03-09 18:42 | ECG_ITS ---
[facility] Test Date: 2025-03-09 Pat Name: Coleman Chavarria Department: Room: Gender: Male Candlemaker: : 1990 Requested By: Clarissa Fitch Order Number: [id number] Ciaran MD: Matheus West M.D. Measurements Intervals [place] Rate: 80 P: 70 GA: 152 QRS: 81 QRSD: 90 T: 63 QT: 343 QTc: 396 Interpretive Statements SINUS RHYTHM Compared to ECG 05/03/2023 19:49:00 No significant changes Electronically Signed On 03-13-2025 14:59:44 CDT by Matheus West M.D. [email or web address]
--- OUTSIDE RECORDS SUMMARY | 2025-03-09 18:42 | XMS_ITS | Clinical Summary ---
Author Organization [employer] Address [address] 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
--- OUTSIDE RECORDS SUMMARY | 2025-03-09 18:42 | XMS_ITS | Clinical Summary ---
Author Organization [facility] Address [address] [place] [address] Phone Care Team Providers Care Conductor And Engineer Name Role Phone Unavailable Primary Care Provider Unavailabl e Allergies No known active allergies Medications oxyCODONE-acetam inophen (PERCOCET) 10-325 mg Tablet Take 1 Tab by mouth every 4 hours as needed for Pain, Severe. 20 Tab None 08/07/2014 Active ibuprofen (MOTRIN) 400 mg tablet Take 1 Tab by mouth every 6 hours as needed for Pain, Mild. 20 Tab None 08/07/2014 Active tamsulosin (FLOMAX) 0.4 mg Extended Release 24 hour capsule Take 1 Cap by mouth daily. 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 SPECIALIST Pulse 79 07/11/2013 9:32 PM VOCATIONAL REHABILITATION SPECIALIST Temperature 36.3 C (97.4 F) 08/07/2014 11:17 AM VOCATIONAL REHABILITATION SPECIALIST Respiratory Rate 20 08/07/2014 11:17 AM VOCATIONAL REHABILITATION SPECIALIST Oxygen Saturation 99% 08/07/2014 11:17 AM VOCATIONAL REHABILITATION SPECIALIST Inhaled Oxygen Concentration - - Weight 64.4 kg (142 lb) 08/07/2014 9:54 AM VOCATIONAL REHABILITATION SPECIALIST Height 170.2 cm (5' 7 ) 08/07/2014 9:54 AM VOCATIONAL REHABILITATION SPECIALIST Body Mass Index 22.24 08/07/2014 9:54 AM VOCATIONAL REHABILITATION SPECIALIST Plan of Treatment Health Maintenance Due Date Last Done Comments DTAP/TDAP/TD VACCINES (1 - Tdap) 2010 HEPATITIS B VACCINES (1 of 3 - 19+ 3-dose series) 2010 INFLUENZA VACCINE (#1) 2025 HPV VACCINES Aged Out No longer eligi ble based on patient's age to complete this topic
--- OUTSIDE RECORDS SUMMARY | 2025-03-09 18:42 | XMS_ITS | Encounter Summary ---
Author Organization [facility] Address [address] [place] [address] Care Team Providers Care Wealth Management Manager Name Role Phone Unavailable Primary Care Provider Unavailabl e Encounter Details Date Type Department Care Team (Late st Contact Info) Description 03/19/2014 Ancillary Orders [facility] Services [place] [address] [place] [address] Other specified cardiac dysrhythmias(427.89) ; Syncope and collapse; Chest pain, unspecified Social History Tobacco Use Types Packs/Day Years Used Date Smoking Tobacco: Every Day Cigarettes Alcohol Use Standard Drinks/Week Comments Yes 0 (1 standard drink = 0.6 oz pur e alcohol) socially/rarely Sex and Gender Information Value Date Recorded Sex Assigned at Not on file Legal Sex Male 8:32 PM CDT Gender Identity Not on file Sexual Orientation Not on file documented as of this encounter Plan of Treatment Not on file documented as of this encounter Procedures Procedure Name Priority Date/Time Associated Diagnosis Comments COMPREHENSIVE METABOLIC PANEL Routine 03/19/2014 9:26 PM CDT Other specified cardiac dysrhythmias(427.89 ) [ICD-9-CM] Syncope and collapse [ICD-9-CM] Chest pain, unspecified [ICD-9-CM] documented in this encounter Results * (ABNORMAL) COMPREHENSIVE METABOLIC PANEL (03/19/2014 9:26 PM CDT) SODIUM 142 136 - 145 mmol/L 03/19/2014 10:26 PM CDT [facility] [place] POTASSIUM 3.6 3.5 - 5.1 mmol/L 03/19/2014 10:26 PM CDT [facility] - [place] CHLORIDE 103 98 - 107 mmol/L 03/19/2014 10:26 PM CDT [facility] [place] CO2 30 21 - 32 mmol/L 03/19/2014 10:26 PM [facility] CALCIUM 8.7 8.5 - 10.1 mg/dL 03/19/2014 10:26 PM [facility] BUN 11 7 - 18 mg/dL 03/19/2014 10:26 PM [facility] CREATININE 1.10 0.60 - 1.30 mg/dL 03/19/2014 10:26 PM [facility] GLUCOSE 72(L) 74 - 106 mg/dL 03/19/2014 10:26 PM [facility] TOTAL PROTEIN 7.5 6.4 - 8.2 g/dL 03/19/2014 10:26 PM [facility] ALBUMIN 4.3 3.4 - 5.0 g/dL 03/19/2014 10:26 PM [facility] BILIRUBIN TOTAL 0.3 0.2 - 1.0 mg/dL 03/19/2014 10:26 PM [facility] ALKALINE PHOSPHATASE 129 50 - 136 U/L 03/19/2014 10:26 PM [facility] AST 12(L) 15 - 37 U/L 03/19/2014 10:26 PM [facility] ALT 23(L) 30 - 65 U/L 03/19/2014 10:26 PM [facility] GFR >60 >=60 mL/min/1.7 3 sq meter 03/19/2014 10:26 PM [facility] Comment: eGFR has not been validated for use in the elderly (> 70 years of age), women, patients with serious co-morbid conditions, or persons with extremes of body size or muscle mass and should also be interpreted with caution in patients with acute kidney failure, dialysis dependent patients, patients reporting exceptional dietary intake (e.g. vegetarian diet, high protein diets, creatine supplementation), and patients with severe liver disease. Based on National Kidney Disease Education Program If patient is , please refer to the GFR result. GFR, >60 >=60 mL/min/1.7 3 sq meter 03/19/2014 10:26 PM CDT [facility] Blood Collection / Unknown 03/19/2014 9:26 PM CDT 03/19/2014 9:26 PM CDT Obi JOSE CHEMISTRY ORDERABLES Final R esult [facility] CLIA # [id number] [address] [place] [id number] documented in this encounter Visit Diagnoses Diagnosis Other specified cardiac dysrhythmias(427.89) Other specified cardiac dysrhythmias Syncope and collapse Chest pain, unspecified documented in this encounter
--- OUTSIDE RECORDS SUMMARY | 2025-03-09 18:42 | XMS_ITS | Encounter Summary ---
Author Organization [facility] Address [address] [place] [address] Care Team Providers Care Nursing Instructor Name Role Phone Unavailable Primary Care Provider Unavailabl e Encounter Details Date Type Department Care Team (Late st Contact Info) Description 03/26/2014 Ancillary Orders [facility] [place] [address] [place] [id number] Other malaise and fatigue Social History Tobacco Use Types Packs/Day Years [...] Procedure Name Priority Date/Time Associated Diagnosis Comments CBC WITH DIFFERENTIAL Routine 03/26/2014 10:07 PM CDT Other malaise and fatigue [ICD-9-CM] COMPREHENSIVE METABOLIC PANEL Routine 03/26/2014 10:07 PM CDT Other malaise and fatigue [ICD-9-CM] documented in this encounter Results * (ABNORMAL) COMPREHENSIVE METABOLIC PANEL (03/26/2014 10:07 PM CDT) SODIUM 140 136 - 145 mmol/L 03/26/2014 11:26 PM CDT [facility] [place] POTASSIUM 3.7 3.5 - 5.1 mmol/L 03/26/2014 11:26 PM CDT [facility] [place] CHLORIDE 101 98 - 107 mmol/L 03/26/2014 11:26 PM CDT [facility] [place] CO2 29 21 - 32 mmol/L 03/26/2014 11:26 PM [facility] [place] CALCIUM 9.2 8.5 - 10.1 mg/dL 03/26/2014 11:26 PM [facility] BUN 15 7 - 18 mg/dL 03/26/2014 11:26 PM [facility] CREATININE 1.00 0.60 - 1.30 mg/dL 03/26/2014 11:26 PM [facility] GLUCOSE 91 74 - 106 mg/dL 03/26/2014 11:26 PM [facility] TOTAL PROTEIN 8.0 6.4 - 8.2 g/dL 03/26/2014 11:26 PM [facility] ALBUMIN 4.8 3.4 - 5.0 g/dL 03/26/2014 11:26 PM [facility] BILIRUBIN TOTAL 0.6 0.2 - 1.0 mg/dL 03/26/2014 11:26 PM [facility] ALKALINE PHOSPHATASE 133 50 - 136 U/L 03/26/2014 11:26 PM [facility] AST 13(L) 15 - 37 U/L 03/26/2014 11:26 PM [facility] ALT 21(L) 30 - 65 U/L 03/26/2014 11:26 PM [facility] GFR >60 >=60 mL/min/1.7 3 sq meter 03/26/2014 11:26 PM [facility] Comment: eGFR has not been validated [...] GFR, >60 >=60 mL/min/1.7 3 sq meter 03/26/2014 11:26 PM CDT [facility] [place] Blood 03/26/2014 10:0 7 PM CDT 03/26/2014 10:07 PM CDT us Stiven Jackman DO CHEMISTRY ORDERABLES Final Resu lt [facility] [place] CLIA # [id number] [address] [place] [address] [address] [place] [address] * (ABNORMAL) CBC WITH DIFFERENTIAL (03/26/2014 10:07 PM CDT) WBC 11.9(H) 4.2 - 9.1 K/uL 03/26/2014 11:02 PM CDT [facility] [place] RBC 5.21 4.63 - 6.08 M/uL 03/26/2014 11:02 PM CDT [facility] [place] HEMOGLOBIN 16.1 13.7 - 17.5 g/dL 03/26/2014 11:02 PM CDT [facility] [place] HEMATOCRIT 45.4 40.1 - 51.0 % 03/26/2014 11:02 PM CDT [facility] [place] MCV 87.1 79.0 - 92.2 fL 03/26/2014 11:02 PM CDT [facility] [place] MCH 30.9 25.7 - 32.2 pg 03/26/2014 11:02 PM CDT [facility] [place] MCHC 35.5 32.3 - 36.5 g/dL 03/26/2014 11:02 PM CDT [facility] [place] RDW 12.4 11.0 - 14.5 % 03/26/2014 11:02 PM CDT [facility] [place] RDW-STDEV 39.4 36.9 - 56.9 fL 03/26/2014 11:02 PM CDT [facility] [place] PLATELETS 229 130 - 400 K/uL 03/26/2014 11:02 PM CDT [facility] [place] MPV 11.8 10.0 - 14.8 fL 03/26/2014 11:02 PM CDT [facility] [place] NEUTROPHILS 64 34 - 68 % 03/26/2014 11:02 PM CDT [facility] [place] LYMPHOCYTES 27 22 - 53 % 03/26/2014 11:02 PM CDT [facility] [place] MONOCYTES 8 5 - 12 % 03/26/2014 11:02 PM CDT [facility] [place] EOSINOPHILS 0(L) 1 - 7 % 03/26/2014 11:02 PM CDT [facility] [place] BASOPHILS 1 0 - 1 % 03/26/2014 11:02 PM CDT [facility] [place] NEUTROPHIL ABSOLUTE 7.60(H) 1.78 - 5.38 K/uL 03/26/2014 11:02 PM CDT [facility] [place] LYMPHOCYTE ABSOLUTE 3.19 1.20 - 3.40 K/uL 03/26/2014 11:02 PM CDT [facility] [place] MONOCYTE ABSOLUTE 0.93(H) 0.30 - 0.82 K/uL 03/26/2014 11:02 PM CDT [facility] [place] EOSINOPHIL ABSOLUTE 0.05 0.04 - 0.54 K/uL 03/26/2014 11:02 PM CDT [facility] [place] BASOPHILS ABSOLUTE 0.08 0.01 - 0.08 K/uL 03/26/2014 11:02 PM CDT [facility] [place] IMMATURE GRANULOCYTES 0 % 03/26/2014 11:02 PM CDT [facility] [place] IMMATURE GRANULOCYTES ABSOLUTE 0.01 K/uL 03/26/2014 11:02 PM CDT [facility] [place] Blood 03/26/2014 10:0 7 PM CDT 03/26/2014 10:07 PM CDT us Stiven Jackman DO HEMATOLOGY ORDERABLES Final Res ult [facility] [place] CLIA # [id number] [address] [place] [address] [address] [place] [address] documented in this encounter Visit Diagnoses Diagnosis Other malaise and fatigue documented in this encounter
[2025-03-09 18:50] LABS: Glucose Urine UA Negative (Normal); Nitrate Urine Negative (Negative); Specific Gravity, Urine 1.020 (1.005-1.030)
[2025-03-09 18:52] LABS: Add Urine Microscopic? YES
--- NOTE | 2025-03-09 18:55 | PC.NURSE ---
Pt was read his 96 hour hold rights at this time with security present. pt had no needs or questions at this time
[2025-03-09 18:57] LABS: PCP Screen Urine Negative (Negative)
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
[2025-03-09 19:44] LABS: Hematocrit 44.9 % (37-53); Hemoglobin 15.20 g/dL (11.27-16.99); Mean Corpuscular HGB Conc 33.9 g/dL (30-55); Mean Corpuscular Hemoglobin 30.4 pg (27-33); Mean Corpuscular Volume 89.8 fl (82-101); Nucleated Red Blood Cells % 0 %; Platelet Count 253 10^3/cmm (157-399); Red Blood Count 5.00 10^6/uL (3.85-5.65); White Blood Count 10.19 10^3/uL (3.29-11.43)
[2025-03-09 20:06] LABS: Alanine Aminotransferase 14 U/L (0-41); Albumin Level 4.5 g/dL (3.5-5.2); Alkaline Phosphatase 90 U/L (40-130); Anion Gap 16.9 (5-19); Aspartate Amino Transferase 14 U/L (0-40); Blood Urea Nitrogen 17 mg/dL (6-20); Calcium 9.3 mg/dL (8.5-10.5); Carbon Dioxide 22 mmol/L (22-29); Chloride 107 mmol/L (98-107); Creatinine Clr Calc Pharmacy 138.1260; Globulin 2.6 g/dL (1.3-4.6); Glucose 103 mg/dL (65-115); Osmolality Calculated 296 mOsm/kg (285-295); Potassium 3.9 mmol/L (3.5-5.1); Sodium 142 mmol/L (136-145); Total Protein 7.1 g/dL (6.6-8.7)
[2025-03-09 20:07] LABS: Acetaminophen < 5.0 ug/mL (10-30); Salicylate < 0.3 mg/dL (3-10)
[2025-03-09 21:57] VITALS: BP 135/95; PULSE 73; RESP 18; TEMP 36.8; O2SAT 98
[2025-03-09 22:00] VITALS: BP 135/95; PULSE 73; RESP 18; TEMP 36.8; O2SAT 98
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
[2025-03-10 06:00] VITALS: BP 125/83; PULSE 67; RESP 18; TEMP 36.9; O2SAT 99
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
[2025-03-10 14:00] VITALS: BP 121/78; PULSE 110; RESP 18; TEMP 36.6; O2SAT 98
[2025-03-10 20:19] VITALS: BP 144/98; PULSE 69; RESP 18; TEMP 36.8; O2SAT 97
[2025-03-11 06:00] VITALS: BP 135/98; PULSE 60; RESP 16; TEMP 36.5; O2SAT 98; BMI 20.3
--- NOTE | 2025-03-11 06:12 | PC.NURSE ---
Addendum entered by Jazzy Kyle CNA 03/11/25 06:12: wrote a note on the wrong patient. Original Note: Patient refused charge nurse notified.
--- NOTE | 2025-03-11 09:10 | P.NPUPN_ITS ---
Subjective NPU 2 Subjective: Patient presented today reporting that he is feeling good and is unclear why he really needs to be here. We discussed the concerns that were expressed in the 96-hour hold affidavits and that we would continue to work with the social work team tomorrow to get some understanding of why those people made the reports they made. He denies any concerns and reports that if he is just allowed to smoke his marijuana everything will be fine and that there are no concerns for lethality towards himself or others. He is still resistant to considering restarting medications that helped in the past or trying a new medication because he feels like this is a solution to a problem that does not exist. Mental Status Exam 2 MSE Comments: This is a slender versus underweight, well-developed white male in hospital scrubs with limited grooming and eye contact. His gait was within normal limits his hygiene was fair. There was no evidence of any abnormal involuntary motor movements tics or tremors appreciated. He had mild psychomotor retardation. Cooperative with exam in mild distress. Speech was mostly normal rate and decreased volume. His mood was described as pretty good. His affect appeared congruent but slightly subdued. His thought process was linear. His thought content showed no evident evidence of active homicidal or suicidal ideation. But there are concerns that were raised related to him having homicidal thoughts leading to the admission. He did not appear to be responding to internal stimuli. There was no clear evidence of delusional thinking. There is no evidence of overvalued ideas. His impulse control appeared limited versus impaired. His insight and judgment were limited. Vitals/I&O/Wt Last Vital Signs Temp 97.7 F 03/11/25 06:00 Pulse 60 03/11/25 06:00 Resp 16 03/11/25 06:00 BP 135/98 03/11/25 06:00 Pulse Ox 98 03/11/25 06:00 O2 Del Method Room Air 03/11/25 06:00 Weight last 48 hrs Weight 59.024 kg Weight 63.503 kg Data NPU 03/09/25 19:39 03/09/25 19:39 A&P Assessment and plan 1. Aggressive behavior: 2. Cannabis dependence with current use: 3. Major depressive disorder, recurrent, severe with psychotic symptoms: Plan: Coleman is a 34-year-old male with a past history of major depressive disorder severe with psychotic features who is known through his past hospitalization with this policy writer typist with similar circumstances of possibly having perceptual disturbances and being off of medication and on a hold. He presents on a 96-hour hold with reports that he was having some aggressive possibly homicidal thoughts towards someone in his [place] which he denies. He reports that since he was here he stopped taking the medication and feels the solution to any of his problems is marijuana. 1. Encourage restarting Abilify. 2. Continue every 15 minute checks for safety. 3. Encourage individual, group and milieu therapy. 4. Encourage sober living treatment after discharge at the highest level of care to which he is willing to commit. 5. Evaluate against the backdrop of the 96-hour hold. 6. Obtain collateral information. PDMP PDMP Reviewed: Not Reviewed Involuntary Hold Information 2 Hold Status: Legal Status: 96 Hour Hold Date/Time Hold Expires: 03/15/25 @1835 96 Hour Hold: 96 Hour Involuntary Admission: Yes Attestations NPU 2 Medical Necessity Statement*: Inpatient hospitalization is medically necessary and the clinically appropriate intervention at this time. We will monitor medications and make changes as indicated. Likely length of stay is 2-4 days. Coding Level of Care Code Acute Code for Chg Fwd Diagnoses Aggressive behavior R46.89 Cannabis dependence with current use F12.20 Major depressive disorder, recurrent, severe with psychotic symptoms F33.3
[2025-03-11 13:58] VITALS: BP 128/88; PULSE 60; RESP 16; TEMP 36.4; O2SAT 99
[2025-03-11 21:01] VITALS: BP 140/96; PULSE 63; RESP 18; TEMP 36.9; O2SAT 97
[2025-03-12 06:00] VITALS: BP 140/99; PULSE 68; RESP 18; TEMP 37.2; O2SAT 95
[2025-03-12 14:00] VITALS: BP 133/89; PULSE 67; RESP 16; TEMP 36.9; O2SAT 96
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
[2025-03-12 19:53] VITALS: BP 123/85; PULSE 79; RESP 18; TEMP 36.9; O2SAT 98
[2025-03-13 06:00] VITALS: BP 107/71; PULSE 63; RESP 18; TEMP 36.9; O2SAT 97
[2025-03-13 14:00] VITALS: BP 107/66; PULSE 74; RESP 18; TEMP 36.7; O2SAT 96
--- NOTE | 2025-03-13 17:52 | P.NPUPN_ITS ---
Subjective NPU 2 Subjective: Patient presented today reporting that things are going okay. We discussed continued concerns about his limited appreciation of the concerns regarding possible legal statements that he was making. We discussed the treatment team trying to get collateral information regarding his behaviors and whether they pose any imminent risk. We discussed the plan to gather that information and either file for 21-day hold tomorrow or discharge tomorrow given his hold being up shortly. He continued to deny any problems or any need for any medication or any substances other than marijuana. We continued to discuss the likelihood that that is not a great plan given his mental health concerns. Mental Status Exam 2 MSE Comments: This is a slender versus underweight, well-developed white male in hospital scrubs with limited grooming and eye contact. His gait was within normal limits his hygiene was fair. There was no evidence of any abnormal involuntary motor movements tics or tremors appreciated. He had mild psychomotor retardation. Cooperative with exam in mild distress. Speech was mostly normal rate and decreased volume. His mood was described as pretty good. His affect appeared congruent but slightly subdued. His thought process was linear. His thought content showed no evident evidence of active homicidal or suicidal ideation. But there are concerns that were raised related to him having homicidal thoughts leading to the admission. He did not appear to be responding to internal stimuli. There was no clear evidence of delusional thinking. There is no evidence of overvalued ideas. His impulse control appeared limited versus impaired. His insight and judgment were limited. Vitals/I&O/Wt Last Vital Signs Temp 98 F 03/13/25 19:28 Pulse 80 03/13/25 19:28 Resp 18 03/13/25 19:28 BP 131/92 03/13/25 19:28 Pulse Ox 98 03/13/25 19:28 O2 Del Method Room Air 03/13/25 19:28 Data NPU 03/09/25 19:39 03/09/25 19:39 A&P Assessment and plan 1. Aggressive behavior: 2. Cannabis dependence with current use: 3. Major depressive disorder, recurrent, severe with psychotic symptoms: Plan: Coleman is a 34-year-old male with a past history of major depressive disorder severe with psychotic features who is known through his past hospitalization with this writer technical publications with similar circumstances of possibly having perceptual disturbances and being off of medication and on a hold. He presents on a 96-hour hold with reports that he was having some aggressive possibly homicidal thoughts towards someone in his [place] which he denies. He reports that since he was here he stopped taking the medication and feels the solution to any of his problems is marijuana. 1. Encourage restarting Abilify. 2. Continue every 15 minute checks for safety. 3. Encourage individual, group and milieu therapy. 4. Encourage sober living treatment after discharge at the highest level of care to which he is willing to commit. 5. Evaluate against the backdrop of the 96-hour hold. 6. Obtain collateral information. PDMP PDMP Reviewed: Not Reviewed Involuntary Hold Information 2 Hold Status: Legal Status: 96 Hour Hold Date/Time Hold Expires: 03/15/25 18:35 96 Hour Hold: 96 Hour Involuntary Admission: Yes Attestations NPU 2 Medical Necessity Statement*: Inpatient hospitalization is medically necessary and the clinically appropriate intervention at this time. We will monitor medications and make changes as indicated. Likely length of stay is 2-4 days. Coding Level of Care Code Acute Code for [facility] Fwd Diagnoses Aggressive behavior R46.89 Cannabis dependence with current use F12.20 Major depressive disorder, recurrent, severe with psychotic symptoms F33.3
[2025-03-13 19:28] VITALS: BP 131/92; PULSE 80; RESP 18; TEMP 36.6; O2SAT 98
[2025-03-14 06:00] VITALS: BP 129/83; PULSE 60; RESP 18; TEMP 36.8; O2SAT 98
[2025-03-14 14:00] VITALS: BP 134/87; PULSE 78; RESP 18; TEMP 36.7; O2SAT 96
--- NOTE | 2025-03-14 18:24 | P.NPUPN_ITS ---
Subjective NPU 2 Subjective: Patient presented today reporting that he is fine. He continues to be isolative per staff report and direct observation. Each time of interviewed him he has been laying in bed usually under the blankets for some degree. Supposedly last night he stayed up really late watching TV. We discussed our belief that him taking medication with also help his legal troubles as well as he could demonstrate that he is taking his mental health or addiction issues seriously. He reports that the legal issues are overblown and the charges will be dropped and that he has no concerns. We discussed that this is likely an over simplification of his situation and that concerns still exist. We discussed the fact that we would either be discharging him tomorrow or filing for his extension. He continued to be resistant to considering medication. Mental Status Exam 2 MSE Comments: This is a slender versus underweight, well-developed white male in hospital scrubs with limited grooming and eye contact. His gait was within normal limits his hygiene was fair. There was no evidence of any abnormal involuntary motor movements tics or tremors appreciated. He had mild psychomotor retardation. Cooperative with exam in mild distress. Speech was mostly normal rate and decreased volume. His mood was described as pretty good. His affect appeared congruent but slightly subdued. His thought process was linear. His thought content showed no evident evidence of active homicidal or suicidal ideation. But there are concerns that were raised related to him having homicidal thoughts leading to the admission. He did not appear to be responding to internal stimuli. There was no clear evidence of delusional thinking. There is no evidence of overvalued ideas. His impulse control appeared limited versus impaired. His insight and judgment were limited. Vitals/I&O/Wt Last Vital Signs Temp 98.1 F 03/14/25 14:00 Pulse 78 03/14/25 14:00 Resp 18 03/14/25 14:00 BP 134/87 03/14/25 14:00 Pulse Ox 96 03/14/25 14:00 O2 Del Method Room Air 03/14/25 06:00 Data NPU 03/09/25 19:39 03/09/25 19:39 A&P Assessment and plan 1. Aggressive behavior: 2. Cannabis dependence with current use: 3. Major depressive disorder, recurrent, severe with psychotic symptoms: Plan: Coleman is a 34-year-old male with a past history of major depressive disorder severe with psychotic features who is known through his past hospitalization with this proposal lead writer with similar circumstances of possibly having perceptual disturbances and being off of medication and on a hold. He presents on a 96-hour hold with reports that he was having some aggressive possibly homicidal thoughts towards someone in his [place] which he denies. He reports that since he was here he stopped taking the medication and feels the solution to any of his problems is marijuana. 1. Encourage restarting Abilify. 2. Continue every 15 minute checks for safety. 3. Encourage individual, group and milieu therapy. 4. Encourage sober living treatment after discharge at the highest level of care to which he is willing to commit. 5. Evaluate against the backdrop of the 96-hour hold. 6. Obtain collateral information. PDMP PDMP Reviewed: Not Reviewed Involuntary Hold Information 2 Hold Status: Legal Status: 96 Hour Hold Date/Time Hold Expires: 03/15/25 18:35 96 Hour Hold: 96 Hour Involuntary Admission: Yes Attestations NPU 2 Medical Necessity Statement*: Inpatient hospitalization is medically necessary and the clinically appropriate intervention at this time. We will monitor medications and make changes as indicated. Likely length of stay is 2-4 days. Coding Level of Care Code Acute Code for Chg Fwd Diagnoses Aggressive behavior R46.89 Cannabis dependence with current use F12.20 Major depressive disorder, recurrent, severe with psychotic symptoms F33.3
[2025-03-14 19:40] VITALS: BP 129/94; PULSE 71; RESP 16; TEMP 36.6; O2SAT 96
[2025-03-15 06:00] VITALS: BP 126/96; PULSE 74; RESP 18; TEMP 36.3; O2SAT 98
[2025-03-15 14:00] VITALS: BP 142/95; PULSE 77; RESP 16; TEMP 36.8; O2SAT 98
--- NOTE | 2025-03-15 18:10 | P.NPUPN_ITS ---
Subjective NPU 2 Subjective: Patient presented today reporting that he has no need to be here he was very insistent that he be discharged because his 96-hour hold was up. He reports that he talked to his father and his father is going against what other people are saying and says he can come back. We discussed that we had not spoken with him about this. We discussed that we would need his dad to be on the list to talk time and he said he did not care for his that was on the list. We discussed continuing this conversation tomorrow as he was being resistant to even getting his dad on his clearance list to speak with. He denied any side effects of any medication. Mental Status Exam 2 MSE Comments: This is a slender versus underweight, well-developed white male in hospital scrubs with limited grooming and eye contact. His gait was within normal limits his hygiene was fair. There was no evidence of any abnormal involuntary motor movements tics or tremors appreciated. He had mild psychomotor retardation. Cooperative with exam in mild distress. Speech was mostly normal rate and decreased volume. His mood was described as pretty good. His affect appeared congruent but slightly subdued. His thought process was linear. His thought content showed no evident evidence of active homicidal or suicidal ideation. But there are concerns that were raised related to him having homicidal thoughts leading to the admission. He did not appear to be responding to internal stimuli. There was no clear evidence of delusional thinking. There is no evidence of overvalued ideas. His impulse control appeared limited versus impaired. His insight and judgment were limited. Vitals/I&O/Wt Last Vital Signs Temp 97.8 F 03/15/25 20:50 Pulse 89 03/15/25 20:50 Resp 21 H 03/15/25 20:50 BP 158/111 03/15/25 20:50 Pulse Ox 99 03/15/25 20:50 O2 Del Method Room Air 03/15/25 20:50 Data NPU 03/09/25 19:39 03/09/25 19:39 A&P Assessment and plan 1. Aggressive behavior: 2. Cannabis dependence with current use: 3. Major depressive disorder, recurrent, severe with psychotic symptoms: Plan: Coleman is a 34-year-old male with a past history of major depressive disorder severe with psychotic features who is known through his past hospitalization with this typewriter mechanic with similar circumstances of possibly having perceptual disturbances and being off of medication and on a hold. He presents on a 96-hour hold with reports that he was having some aggressive possibly homicidal thoughts towards someone in his [place] which he denies. He reports that since he was here he stopped taking the medication and feels the solution to any of his problems is marijuana. 1. Encourage restarting Abilify. He continues to refuse medication and the only process by which we would be able to give him medication based on his current attitude would be 2. Continue every 15 minute checks for safety. 3. Encourage individual, group and milieu therapy. 4. Encourage sober living treatment after discharge at the highest level of care to which he is willing to commit. 5. Evaluate against the backdrop of the 96-hour hold. 6. Obtain collateral information. PDMP PDMP Reviewed: Not Reviewed Involuntary Hold Information 2 Hold Status: Legal Status: 96 Hour Hold Date/Time Hold Expires: 03/15/25 18:35 96 Hour Hold: 96 Hour Involuntary Admission: Yes Attestations NPU 2 Medical Necessity Statement*: Inpatient hospitalization is medically necessary and the clinically appropriate intervention at this time. We will monitor medications and make changes as indicated. Likely length of stay is 1-3 days. Coding Level of Care Code Acute Code for Chg Fwd Diagnoses Aggressive behavior R46.89 Cannabis dependence with current use F12.20 Major depressive disorder, recurrent, severe with psychotic symptoms F33.3
[2025-03-15 20:50] VITALS: BP 158/111; PULSE 89; RESP 21; TEMP 36.6; O2SAT 99
[2025-03-16 06:00] VITALS: BP 135/98; PULSE 79; RESP 19; TEMP 36.6; O2SAT 98
[2025-03-16 14:00] VITALS: BP 148/95; PULSE 83; RESP 18; TEMP 37; O2SAT 97
--- NOTE | 2025-03-16 14:07 | P.NPUPN_ITS ---
Subjective NPU 2 Subjective: Patient presented today reporting that he really did not have anything to talk about. He reported that he had proven that he did not need to be here and so that he would just wait for the hearing on Wednesday to prove his case. He denied any need for medication or any side effects to the medication. He did not want to speak about his legal issues that have been created by his poor judgment while off of medication including multiple felony cases. Mental Status Exam 2 MSE Comments: This is a slender versus underweight, well-developed white male in hospital scrubs with limited grooming and eye contact. His gait was within normal limits his hygiene was fair. There was no evidence of any abnormal involuntary motor movements tics or tremors appreciated. He had mild psychomotor retardation. Cooperative with exam in mild distress. Speech was mostly normal rate and decreased volume. His mood was described as pretty good. His affect appeared congruent but slightly subdued. His thought process was linear. His thought content showed no evident evidence of active homicidal or suicidal ideation. But there are concerns that were raised related to him having homicidal thoughts leading to the admission. He did not appear to be responding to internal stimuli. There was no clear evidence of delusional thinking. There is no evidence of overvalued ideas. His impulse control appeared limited versus impaired. His insight and judgment were limited. Vitals/I&O/Wt Last Vital Signs Temp 97.8 F 03/16/25 06:00 Pulse 79 03/16/25 06:00 Resp 19 H 03/16/25 06:00 BP 135/98 03/16/25 06:00 Pulse Ox 98 03/16/25 06:00 O2 Del Method Room Air 03/16/25 06:00 Data NPU 03/09/25 19:39 03/09/25 19:39 A&P Assessment and plan 1. Aggressive behavior: 2. Cannabis dependence with current use: 3. Major depressive disorder, recurrent, severe with psychotic symptoms: Plan: Coleman is a 34-year-old male with a past history of major depressive disorder severe with psychotic features who is known through his past hospitalization with this data analyst report writer with similar circumstances of possibly having perceptual disturbances and being off of medication and on a hold. He presents on a 96-hour hold with reports that he was having some aggressive possibly homicidal thoughts towards someone in his [place] which he denies. He reports that since he was here he stopped taking the medication and feels the solution to any of his problems is marijuana. 1. Encourage restarting Abilify. He continues to refuse medication and the only process by which we would be able to give him medication based on his current attitude would be 2. Continue every 15 minute checks for safety. 3. Encourage individual, group and milieu therapy. 4. Encourage sober living treatment after discharge at the highest level of care to which he is willing to commit. 5. Evaluate against the backdrop of the 96-hour hold. Filed for 21-day hold. Patient continues to have poor insight about his situation and options. 6. Obtain collateral information. PDMP PDMP Reviewed: Not Reviewed Involuntary Hold Information 2 Hold Status: Legal Status: 96 Hour Hold Date/Time Hold Expires: 03/15/25 18:35 96 Hour Hold: 96 Hour Involuntary Admission: Yes Attestations NPU 2 Medical Necessity Statement*: Inpatient hospitalization is medically necessary and the clinically appropriate intervention at this time. We will monitor medications and make changes as indicated. Likely length of stay is 3-5 days. Coding Level of Care Code Acute Code for Chg Fwd Diagnoses Aggressive behavior R46.89 Cannabis dependence with current use F12.20 Major depressive disorder, recurrent, severe with psychotic symptoms F33.3
[2025-03-16 20:29] VITALS: BP 133/88; PULSE 62; RESP 16; TEMP 36.6; O2SAT 97
[2025-03-17 06:00] VITALS: BP 124/74; PULSE 61; RESP 16; TEMP 36.6; O2SAT 99
--- NOTE | 2025-03-17 07:51 | W.PM.NPUPNS ---
Subjective NPU Subjective: Patient presented today reporting that things are fine. He is fixated on the fact that he has a repeatable prove that he is fine and there is no need to collaborate with this telegraphic typewriter mechanic and that he will be able to show without questions that he is not in need of medication, this hospitalization or any kind of treatment or assistance. He is not open to speak realistically about the charges and challenges that his mental health issues have allowed him to experience. The significant legal parol clearly is not understood. He continues to report that he only needs marijuana for maintaining sanity. Mental Status Exam MSE Comments: This is a slender versus underweight, well-developed white male in hospital scrubs with limited grooming and eye contact. His gait was within normal limits his hygiene was fair. There was no evidence of any abnormal involuntary motor movements tics or tremors appreciated. He had mild psychomotor retardation. Cooperative with exam in mild distress. Speech was mostly normal rate and decreased volume. His mood was described as pretty good. His affect appeared congruent but slightly subdued. His thought process was linear. His thought content showed no evident evidence of active homicidal or suicidal ideation. But there are concerns that were raised related to him having homicidal thoughts leading to the admission. He did not appear to be responding to internal stimuli. There was no clear evidence of delusional thinking. There is no evidence of overvalued ideas. His impulse control appeared limited versus impaired. His insight and judgment were limited. Vitals/I&O/Wt Last Vital Signs Temp 97.8 F 03/17/25 06:00 Pulse 61 03/17/25 06:00 Resp 16 03/17/25 06:00 BP 124/74 03/17/25 06:00 Pulse Ox 99 03/17/25 06:00 O2 Del Method Room Air 03/17/25 06:00 Weight last 48 hrs Weight 60.872 kg Data NPU 03/09/25 19:39 03/09/25 19:39 A&P Assessment and plan 1. Aggressive behavior: 2. Cannabis dependence with current use: 3. Major depressive disorder, recurrent, severe with psychotic symptoms: Plan: Coleman is a 34-year-old male with a past history of major depressive disorder severe with psychotic features who is known through his past hospitalization with this telegraphic typewriter mechanic with similar circumstances of possibly having perceptual disturbances and being off of medication and on a hold. He presents on a 96-hour hold with reports that he was having some aggressive possibly homicidal thoughts towards someone in his [place] which he denies. He reports that since he was here he stopped taking the medication and feels the solution to any of his problems is marijuana. 1. Encourage restarting Abilify. He continues to refuse medication and the only process by which we would be able to give him medication based on his current attitude would be 2. Continue every 15 minute checks for safety. 3. Encourage individual, group and milieu therapy. 4. Encourage sober living treatment after discharge at the highest level of care to which he is willing to commit. 5. Evaluate against the backdrop of the 96-hour hold. Filed for 21-day hold. Patient continues to have poor insight about his situation and options. 6. Obtain collateral information. PDMP PDMP Reviewed: Not Reviewed Involuntary Hold Information Hold Status: Legal Status: 96 Hour Hold Date/Time Hold Expires: 03/15/25 18:35 96 Hour Hold: 96 Hour Involuntary Admission: Yes Attestations NPU Medical Necessity Statement*: Inpatient hospitalization is medically necessary and the clinically appropriate intervention at this time. We will monitor medications and make changes as indicated. Likely length of stay is 3-5 days. Coding Level of Care Code Acute Code for Chg Fwd Diagnoses Aggressive behavior R46.89 Cannabis dependence with current use F12.20 Major depressive disorder, recurrent, severe with psychotic symptoms F33.3
[2025-03-17 14:00] VITALS: BP 150/105; PULSE 71; RESP 18; TEMP 37.1; O2SAT 99
[2025-03-17 19:41] VITALS: BP 149/97; PULSE 105; RESP 18; TEMP 36.8; O2SAT 98
[2025-03-18 06:00] VITALS: BP 118/74; PULSE 68; RESP 16; TEMP 36.5; O2SAT 98
--- NOTE | 2025-03-18 09:51 | P.NPUPN_ITS ---
Subjective NPU 2 Subjective: patient presented today reporting that he is excited about the hearing tomorrow and that he is convinced that he is proven that he has nothing wrong with him. When asked about the plan for what happened when he discharges he continues to have no clear plan. His family does not want him back on the property and he has some significant legal things that are out there that he is convinced that just going to disappear. In this state he continues to lack insight into the decisions he makes leading to bad outcomes and increased risks to his freedom and options. Mental Status Exam 2 MSE Comments: This is a slender versus underweight, well-developed white male in hospital scrubs with limited grooming and eye contact. His gait was within normal limits his hygiene was fair. There was no evidence of any abnormal involuntary motor movements tics or tremors appreciated. He had mild psychomotor retardation. Cooperative with exam in mild distress. Speech was mostly normal rate and decreased volume. His mood was described as pretty good. His affect appeared congruent but slightly subdued. His thought process was linear. His thought content showed no evident evidence of active homicidal or suicidal ideation. But there are concerns that were raised related to him having homicidal thoughts leading to the admission. He did not appear to be responding to internal stimuli. There was no clear evidence of delusional thinking. There is no evidence of overvalued ideas. His impulse control appeared limited versus impaired. His insight and judgment were limited. Vitals/I&O/Wt Last Vital Signs Temp 97.7 F 03/18/25 06:00 Pulse 68 03/18/25 06:00 Resp 16 03/18/25 06:00 BP 118/74 03/18/25 06:00 Pulse Ox 98 03/18/25 06:00 O2 Del Method Room Air 03/18/25 06:00 Weight last 48 hrs Weight 60.872 kg Data NPU 03/09/25 19:39 03/09/25 19:39 A&P Assessment and plan 1. Aggressive behavior: 2. Cannabis dependence with current use: 3. Major depressive disorder, recurrent, severe with psychotic symptoms: Plan: Coleman is a 34-year-old male with a past history of major depressive disorder severe with psychotic features who is known through his past hospitalization with this report writer with similar circumstances of possibly having perceptual disturbances and being off of medication and on a hold. He presents on a 96-hour hold with reports that he was having some aggressive possibly homicidal thoughts towards someone in his [place] which he denies. He reports that since he was here he stopped taking the medication and feels the solution to any of his problems is marijuana. 1. Encourage restarting Abilify. He continues to refuse medication and the only process by which we would be able to give him medication based on his current attitude would be 2. Continue every 15 minute checks for safety. 3. Encourage individual, group and milieu therapy. 4. Encourage sober living treatment after discharge at the highest level of care to which he is willing to commit. 5. Evaluate against the backdrop of the 96-hour hold. Filed for 21-day hold. Patient continues to have poor insight about his situation and options. 6. Obtain collateral information. PDMP PDMP Reviewed: Not Reviewed Involuntary Hold Information 2 Hold Status: Legal Status: 96 Hour Hold Date/Time Hold Expires: 03/15/25 18:35 96 Hour Hold: 96 Hour Involuntary Admission: Yes Attestations NPU 2 Medical Necessity Statement*: Inpatient hospitalization is medically necessary and the clinically appropriate intervention at this time. We will monitor medications and make changes as indicated. Likely length of stay is 3-5 days. Coding Level of Care Code Acute Code for Chg Fwd Diagnoses Aggressive behavior R46.89 Cannabis dependence with current use F12.20 Major depressive disorder, recurrent, severe with psychotic symptoms F33.3
[2025-03-18 14:00] VITALS: BP 144/94; PULSE 95; RESP 18; TEMP 37.3; O2SAT 98
[2025-03-18 19:55] VITALS: BP 135/91; PULSE 77; RESP 18; TEMP 36.5; O2SAT 98
[2025-03-19 06:00] VITALS: BP 133/92; PULSE 74; RESP 18; TEMP 36.5; O2SAT 98
[2025-03-19 14:00] VITALS: BP 151/111; PULSE 86; RESP 18; TEMP 36.6; O2SAT 98
--- NOTE | 2025-03-19 15:39 | PC.NURSE ---
Pt off campus for court.
--- NOTE | 2025-03-19 18:48 | P.NPUPN_ITS ---
Subjective NPU 2 Subjective: Patient presented today reporting that he is not happy. We discussed the fact that his choices are now limited because he is now a [place] the [place] and we are allowed to administer medication as indicated. We identified that he can choose some other medication that is available as an injection but his choices are Abilify or Invega. He tried to reports that all these medications caused him problems. We discussed that we saw him on the Abilify without incident and that we would work to deal with any side effects as indicated. He continues to somewhat have magical thinking that what happened [place] the [place] did not happen but we discussed that in the morning we would either have him on oral medication or the injection if he was refusing. Continue to report that all this necessary for him is marijuana. Mental Status Exam 2 MSE Comments: This is a slender versus underweight, well-developed white male in hospital scrubs with limited grooming and eye contact. His gait was within normal limits his hygiene was fair. There was no evidence of any abnormal involuntary motor movements tics or tremors appreciated. He had mild psychomotor retardation. Cooperative with exam in mild distress. Speech was mostly normal rate and decreased volume. His mood was described as not happy this will not help me. His affect appeared congruent but slightly subdued. His thought process was linear. His thought content showed no evident evidence of active homicidal or suicidal ideation. But there are concerns that were raised related to him having homicidal thoughts leading to the admission. He did not appear to be responding to internal stimuli. There was no clear evidence of delusional thinking. There is no evidence of overvalued ideas. His impulse control appeared limited versus impaired. His insight and judgment were limited. Vitals/I&O/Wt Last Vital Signs Temp 97.8 F 03/19/25 14:00 Pulse 86 03/19/25 14:00 Resp 18 03/19/25 14:00 BP 151/111 03/19/25 14:00 Pulse Ox 98 03/19/25 14:00 O2 Del Method Room Air 03/19/25 14:00 Data NPU 03/09/25 19:39 03/09/25 19:39 A&P Assessment and plan 1. Aggressive behavior: 2. Cannabis dependence with current use: 3. Major depressive disorder, recurrent, severe with psychotic symptoms: Plan: Coleman is a 34-year-old male with a past history of major depressive disorder severe with psychotic features who is known through his past hospitalization with this leader writer with similar circumstances of possibly having perceptual disturbances and being off of medication and on a hold. He presents on a 96-hour hold with reports that he was having some aggressive possibly homicidal thoughts towards someone in his [place] which he denies. He reports that since he was here he stopped taking the medication and feels the solution to any of his problems is marijuana. 1. Encourage restarting Abilify. He continues to refuse medication and the only process by which we would be able to give him medication based on his current attitude would be. We will initiate Abilify in the morning likely with a long-acting injection. 2. Continue every 15 minute checks for safety. 3. Encourage individual, group and milieu therapy. 4. Encourage sober living treatment after discharge at the highest level of care to which he is willing to commit. 5. Evaluate against the backdrop of the 96-hour hold. Filed for 21-day hold. Patient continues to have poor insight about his situation and options. Patient placed on a 21-day hold. 6. Obtain collateral information. PDMP PDMP Reviewed: Not Reviewed Involuntary Hold Information 2 Hold Status: Legal Status: 96 Hour Hold Date/Time Hold Expires: 03/15/25 18:35 96 Hour Hold: 96 Hour Involuntary Admission: Yes Attestations NPU 2 Medical Necessity Statement*: Inpatient hospitalization is medically necessary and the clinically appropriate intervention at this time. We will monitor medications and make changes as indicated. Likely length of stay is 6-10 days. Coding Level of Care Code Acute Code for [facility] Diagnoses Aggressive behavior R46.89 Cannabis dependence with current use F12.20 Major depressive disorder, recurrent, severe with psychotic symptoms F33.3
[2025-03-19 20:45] VITALS: BP 156/94; PULSE 76; RESP 18; TEMP 36.9; O2SAT 97
[2025-03-20 06:00] VITALS: BP 117/77; PULSE 76; RESP 16; TEMP 36.6; O2SAT 98
--- NOTE | 2025-03-20 06:54 | P.NPUPN_ITS ---
Subjective NPU 2 Subjective: Patient presented today continuing to report that he is doing fine and that everyone else is misinterpreting things. He talked for some time about how smart he was. We discussed him starting Abilify 10 mg p.o. every morning including the risks benefits and alternatives and he understood and agreed to proceed as is documented in this note. We talked about the fact that it was likely we would want to do the long-acting injection before he left. Mental Status Exam 2 MSE Comments: This is a slender versus underweight, well-developed white male in hospital scrubs with limited grooming and eye contact. His gait was within normal limits his hygiene was fair. There was no evidence of any abnormal involuntary motor movements tics or tremors appreciated. He had mild psychomotor retardation. Cooperative with exam in mild distress. Speech was mostly normal rate and decreased volume. His mood was described as not happy this will not help me. His affect appeared congruent but slightly subdued. His thought process was linear. His thought content showed no evident evidence of active homicidal or suicidal ideation. But there are concerns that were raised related to him having homicidal thoughts leading to the admission. He did not appear to be responding to internal stimuli. There was no clear evidence of delusional thinking. There is no evidence of overvalued ideas. His impulse control appeared limited versus impaired. His insight and judgment were limited. Vitals/I&O/Wt Last Vital Signs Temp 97.9 F 03/20/25 06:00 Pulse 76 03/20/25 06:00 Resp 16 03/20/25 06:00 BP 117/77 03/20/25 06:00 Pulse Ox 98 03/20/25 06:00 O2 Del Method Room Air 03/20/25 06:00 Data NPU 03/09/25 19:39 03/09/25 19:39 A&P Assessment and plan 1. Aggressive behavior: 2. Cannabis dependence with current use: 3. 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 He presents on a 96-hour hold with reports that he was having some aggressive possibly homicidal thoughts towards someone in his [place] which he denies. He reports that since he was here he stopped taking the medication and feels the solution to any of his problems is marijuana. 1. Encourage restarting Abilify. He continues to refuse medication and the only process by which we would be able to give him medication based on his current attitude would be. We will initiate Abilify in the morning likely with a long-acting injection. 2. Continue every 15 minute checks for safety. 3. Encourage individual, group and milieu therapy. 4. Encourage sober living treatment after discharge at the highest level of care to which he is willing to commit. 5. Evaluate against the backdrop of the 96-hour hold. Filed for 21-day hold. Patient continues to have poor insight about his situation and options. Patient placed on a 21-day hold. 6. Obtain collateral information. PDMP PDMP Reviewed: Not Reviewed Involuntary Hold Information 2 Hold Status: Legal Status: 96 Hour Hold Date/Time Hold Expires: 03/15/25 18:35 96 Hour Hold: 96 Hour Involuntary Admission: Yes Attestations NPU 2 Medical Necessity Statement*: Inpatient hospitalization is medically necessary and the clinically appropriate intervention at this time. We will monitor medications and make changes as indicated. Likely length of stay is 6-10 days. Coding Level of Care Code Acute Code for g Fwd Diagnoses Aggressive behavior R46.89 Cannabis dependence with current use F12.20 Major depressive disorder, recurrent, severe with psychotic symptoms F33.3
[2025-03-20 14:00] VITALS: BP 151/88; PULSE 89; RESP 16; TEMP 36.9; O2SAT 98
[2025-03-20 20:37] VITALS: BP 157/84; PULSE 94; RESP 18; TEMP 36.8; O2SAT 93
[2025-03-21 05:52] VITALS: BP 131/76; PULSE 84; RESP 17; TEMP 36.7; O2SAT 97
[2025-03-21 14:00] VITALS: BP 136/92; PULSE 76; RESP 18; TEMP 36.9; O2SAT 97
--- NOTE | 2025-03-21 15:53 | W.PM.NPUPNS ---
Subjective NPU Subjective: Patient presented today reporting that he is doing okay. We discussed about his hygiene needing assistance. We discussed that his belief that he is allergic to water has no real basis. He reports now that is not the water but the chlorine in the water. He reports however that he has been splashing himself with soap and doing different things to help with his hygiene but we discussed that his not effective and is something that needs to be addressed. Otherwise he identifies that he is tolerating the Abilify though he is hoping for discharge and not wanting the dose to be increased for any reason. He denied any clear side effects of the medication. Mental Status Exam MSE Comments: This is a slender versus underweight, well-developed white male in hospital scrubs with limited grooming and eye contact. His gait was within normal limits his hygiene was poor. There was no evidence of any abnormal involuntary motor movements tics or tremors appreciated. He had mild psychomotor retardation. Cooperative with exam in mild distress. Speech was mostly normal rate and decreased volume. His mood was described as not happy this will not help me. His affect appeared congruent but slightly subdued. His thought process was linear. His thought content showed no evident evidence of active homicidal or suicidal ideation. But there are concerns that were raised related to him having homicidal thoughts leading to the admission. He did not appear to be responding to internal stimuli. There was no clear evidence of delusional thinking. There is no evidence of overvalued ideas. His impulse control appeared limited versus impaired. His insight and judgment were limited. Vitals/I&O/Wt Last Vital Signs Temp 98.4 F 03/21/25 14:00 Pulse 76 03/21/25 14:00 Resp 18 03/21/25 14:00 BP 136/92 03/21/25 14:00 Pulse Ox 97 03/21/25 14:00 O2 Del Method Room Air 03/21/25 14:00 Data NPU 03/09/25 19:39 03/09/25 19:39 A&P Assessment and plan 1. Aggressive behavior: 2. Cannabis dependence with current use: 3. 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 He presents on a 96-hour hold with reports that he was having some aggressive possibly homicidal thoughts towards someone in his [place] which he denies. He reports that since he was here he stopped taking the medication and feels the solution to any of his problems is marijuana. 1. Encourage restarting Abilify. He continues to refuse medication and the only process by which we would be able to give him medication based on his current attitude would be. We restarted Abilify and likely will follow-up with the long-acting injection. 2. Continue every 15 minute checks for safety. 3. Encourage individual, group and milieu therapy. 4. Encourage sober living treatment after discharge at the highest level of care to which he is willing to commit. 5. Evaluate against the backdrop of the 96-hour hold. Filed for 21-day hold. Patient continues to have poor insight about his situation and options. Patient placed on a 21-day hold. 6. Obtain collateral information. PDMP PDMP Reviewed: Not Reviewed Involuntary Hold Information Hold Status: Legal Status: 21 Day Hold Date/Time Hold Expires: 04/10/25 96 Hour Hold: 96 Hour Involuntary Admission: Yes Attestations NPU Medical Necessity Statement*: Inpatient hospitalization is medically necessary and the clinically appropriate intervention at this time. We will monitor medications and make changes as indicated. Likely length of stay is 6-10 days. Coding Level of Care Code Acute Code for Chg Fwd Diagnoses Aggressive behavior R46.89 Cannabis dependence with current use F12.20 Major depressive disorder, recurrent, severe with psychotic symptoms F33.3
[2025-03-21 21:00] VITALS: BP 140/90; PULSE 83; RESP 18; TEMP 36.9; O2SAT 96
[2025-03-22 06:00] VITALS: BP 117/80; PULSE 76; RESP 17; TEMP 36.6; O2SAT 97
--- NOTE | 2025-03-22 08:35 | W.PM.NPUPNS ---
Subjective NPU Subjective: Patient presented today acknowledging that he took the medication as prescribed but reported that he could tell it was the right dose and that no increases will be tolerated by his body. He was certain that the injection would eventually make it to his body would completely shut down we discussed that the injection slowly increases to a target dose and so would not be experienced as some rapid intensive situation and that only with coadministration of the oral medication there is rapid movement to the target dose occur. Otherwise he denied any concerns or side effects. Mental Status Exam MSE Comments: This is a slender versus underweight, well-developed white male in hospital scrubs with limited grooming and eye contact. His gait was within normal limits his hygiene was fair. There was no evidence of any abnormal involuntary motor movements tics or tremors appreciated. He had mild psychomotor retardation. Cooperative with exam in mild distress. Speech was mostly normal rate and decreased volume. His mood was described as not happy this will not help me. His affect appeared congruent but slightly subdued. His thought process was linear. His thought content showed no evident evidence of active homicidal or suicidal ideation. But there are concerns that were raised related to him having homicidal thoughts leading to the admission. He did not appear to be responding to internal stimuli. There was no clear evidence of delusional thinking. There is no evidence of overvalued ideas. His impulse control appeared limited versus impaired. His insight and judgment were limited. Vitals/I&O/Wt Last Vital Signs Temp 97.8 F 03/22/25 06:00 Pulse 76 03/22/25 06:00 Resp 17 03/22/25 06:00 BP 117/80 03/22/25 06:00 Pulse Ox 97 03/22/25 06:00 O2 Del Method Room Air 03/22/25 06:00 Data NPU 03/09/25 19:39 03/09/25 19:39 A&P Assessment and plan 1. Aggressive behavior: 2. Cannabis dependence with current use: 3. 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 He presents on a 96-hour hold with reports that he was having some aggressive possibly homicidal thoughts towards someone in his [place] which he denies. He reports that since he was here he stopped taking the medication and feels the solution to any of his problems is marijuana. 1. Encourage restarting Abilify. He continues to refuse medication and the only process by which we would be able to give him medication based on his current attitude would be. We restarted Abilify and likely will follow-up with the long-acting injection. 2. Continue every 15 minute checks for safety. 3. Encourage individual, group and milieu therapy. 4. Encourage sober living treatment after discharge at the highest level of care to which he is willing to commit. 5. Evaluate against the backdrop of the 96-hour hold. Filed for 21-day hold. Patient continues to have poor insight about his situation and options. Patient placed on a 21-day hold. 6. Obtain collateral information. PDMP PDMP Reviewed: Not Reviewed Involuntary Hold Information Hold Status: Legal Status: 96 Hour Hold Date/Time Hold Expires: 03/15/25 18:35 96 Hour Hold: 96 Hour Involuntary Admission: Yes Attestations NPU Medical Necessity Statement*: Inpatient hospitalization is medically necessary and the clinically appropriate intervention at this time. We will monitor medications and make changes as indicated. Likely length of stay is 6-10 days. Coding Level of Care Code Acute Code for [facility] Fwd Diagnoses Aggressive behavior R46.89 Cannabis dependence with current use F12.20 Major depressive disorder, recurrent, severe with psychotic symptoms F33.3
[2025-03-22 14:00] VITALS: BP 136/97; PULSE 88; RESP 18; TEMP 36.9; O2SAT 97
[2025-03-22 20:07] VITALS: BP 133/92; PULSE 72; RESP 18; TEMP 36.8; O2SAT 96
[2025-03-23 06:00] VITALS: BP 137/96; PULSE 88; RESP 18; TEMP 36.9; O2SAT 98
[2025-03-23 14:00] VITALS: BP 140/95; PULSE 82; RESP 16; TEMP 36.9; O2SAT 98
--- NOTE | 2025-03-23 17:34 | P.NPUPN_ITS ---
Subjective NPU 2 Subjective: Patient presented today reporting that he was doing fine. He was watching TV which is his common past time and reporting that he was having no issues. Staff report he is seeming less irritable and uptight and this was noted [place] on observation. He did not attributed to the medication and continued to endorse having a water allergy/chlorine allergy but did reportedly shower upon request today. He denied any side effects of the medication. Mental Status Exam 2 MSE Comments: This is a slender versus underweight, well-developed white male in hospital scrubs with limited grooming and eye contact. His gait was within normal limits his hygiene was poor. There was no evidence of any abnormal involuntary motor movements tics or tremors appreciated. He had mild psychomotor retardation. Cooperative with exam in mild distress. Speech was mostly normal rate and decreased volume. His mood was described as not happy this will not help me. His affect appeared congruent but slightly subdued. His thought process was linear. His thought content showed no evident evidence of active homicidal or suicidal ideation. But there are concerns that were raised related to him having homicidal thoughts leading to the admission. He did not appear to be responding to internal stimuli. There was no clear evidence of delusional thinking. There is no evidence of overvalued ideas. His impulse control appeared limited versus impaired. His insight and judgment were limited. Vitals/I&O/Wt Last Vital Signs Temp 98.5 F 03/23/25 14:00 Pulse 82 03/23/25 14:00 Resp 16 03/23/25 14:00 BP 140/95 03/23/25 14:00 Pulse Ox 98 03/23/25 14:00 O2 Del Method Room Air 03/23/25 14:00 Data NPU 03/09/25 19:39 03/09/25 19:39 A&P Assessment and plan 1. Aggressive behavior: 2. Cannabis dependence with current use: 3. 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 He presents on a 96-hour hold with reports that he was having some aggressive possibly homicidal thoughts towards someone in his [place] which he denies. He reports that since he was here he stopped taking the medication and feels the solution to any of his problems is marijuana. 1. Encourage restarting Abilify. He continues to refuse medication and the only process by which we would be able to give him medication based on his current attitude would be. We restarted Abilify and likely will follow-up with the long-acting injection. 2. Continue every 15 minute checks for safety. 3. Encourage individual, group and milieu therapy. 4. Encourage sober living treatment after discharge at the highest level of care to which he is willing to commit. 5. Evaluate against the backdrop of the 96-hour hold. Filed for 21-day hold. Patient continues to have poor insight about his situation and options. Patient placed on a 21-day hold. 6. Obtain collateral information. PDMP PDMP Reviewed: Not Reviewed Involuntary Hold Information 2 Hold Status: Legal Status: 21 Day Hold Date/Time Hold Expires: 04/10/25 96 Hour Hold: 96 Hour Involuntary Admission: Yes Attestations NPU 2 Medical Necessity Statement*: Inpatient hospitalization is medically necessary and the clinically appropriate intervention at this time. We will monitor medications and make changes as indicated. Likely length of stay is 6-10 days. Coding Level of Care Code Acute Code for g Fwd Diagnoses Aggressive behavior R46.89 Cannabis dependence with current use F12.20 Major depressive disorder, recurrent, severe with psychotic symptoms F33.3
[2025-03-23 20:15] VITALS: BP 154/90; PULSE 77; RESP 18; TEMP 37.1
[2025-03-24 06:00] VITALS: BP 126/87; PULSE 85; RESP 18; TEMP 36.5; O2SAT 97
[2025-03-24 14:00] VITALS: BP 141/97; PULSE 77; RESP 18; TEMP 36.3; O2SAT 97
[2025-03-24 20:12] VITALS: BP 147/101; PULSE 90; RESP 20; TEMP 36.9; O2SAT 96
--- NOTE | 2025-03-24 21:26 | P.NPUPN_ITS ---
Subjective NPU 2 Subjective: Patient presents today reporting that things are going okay. He denies any problems with the medication but continues to be ambivalent about taking it per staff reports and direct observation. We will continue to await information on the long-acting injectable and we discussed a plan to consider those once we understand insurance considerations. He denied any side effects of the medication. Mental Status Exam 2 MSE Comments: This is a slender versus underweight, well-developed white male in hospital scrubs with limited grooming and eye contact. His gait was within normal limits his hygiene was poor. There was no evidence of any abnormal involuntary motor movements tics or tremors appreciated. He had mild psychomotor retardation. Cooperative with exam in mild distress. Speech was mostly normal rate and decreased volume. His mood was described as not happy this will not help me. His affect appeared congruent but slightly subdued. His thought process was linear. His thought content showed no evident evidence of active homicidal or suicidal ideation. But there are concerns that were raised related to him having homicidal thoughts leading to the admission. He did not appear to be responding to internal stimuli. There was no clear evidence of delusional thinking. There is no evidence of overvalued ideas. His impulse control appeared limited versus impaired. His insight and judgment were limited. Vitals/I&O/Wt Last Vital Signs Temp 98.4 F 03/24/25 20:12 Pulse 90 03/24/25 20:12 Resp 20 H 03/24/25 20:12 BP 147/101 03/24/25 20:12 Pulse Ox 96 03/24/25 20:12 O2 Del Method Room Air 03/24/25 20:12 Data NPU 03/09/25 19:39 03/09/25 19:39 A&P Assessment and plan 1. Aggressive behavior: 2. Cannabis dependence with current use: 3. 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 He presents on a 96-hour hold with reports that he was having some aggressive possibly homicidal thoughts towards someone in his [place] which he denies. He reports that since he was here he stopped taking the medication and feels the solution to any of his problems is marijuana. 1. Encourage restarting Abilify. He continues to refuse medication and the only process by which we would be able to give him medication based on his current attitude would be. We restarted Abilify and likely will follow-up with the long-acting injection. A prescription for the Abilify Asimtufii has been sent to the outpatient pharmacy and a request for the Abilify Maintena has been sent to the inpatient pharmacy. We will wait finding out if the Abilify Asimtufii was approved. If not Abilify Maintena will be given when it arrives. 2. Continue every 15 minute checks for safety. 3. Encourage individual, group and milieu therapy. 4. Encourage sober living treatment after discharge at the highest level of care to which he is willing to commit. 5. Evaluate against the backdrop of the 96-hour hold. Filed for 21-day hold. Patient continues to have poor insight about his situation and options. Patient placed on a 21-day hold. 6. Obtain collateral information. PDMP PDMP Reviewed: Not Reviewed Involuntary Hold Information 2 Hold Status: Legal Status: 21 Day Hold Date/Time Hold Expires: 04/10/25 96 Hour Hold: 96 Hour Involuntary Admission: Yes Attestations NPU 2 Medical Necessity Statement*: Inpatient hospitalization is medically necessary and the clinically appropriate intervention at this time. We will monitor medications and make changes as indicated. Likely length of stay is 6-10 days. Coding Level of Care Code Acute Code for Chg Fwd Diagnoses Aggressive behavior R46.89 Cannabis dependence with current use F12.20 Major depressive disorder, recurrent, severe with psychotic symptoms F33.3
[2025-03-25 06:00] VITALS: BP 133/89; PULSE 86; RESP 18; TEMP 36.5; O2SAT 97; BMI 21.3
[2025-03-25 14:00] VITALS: BP 144/89; PULSE 87; RESP 16; TEMP 36.6; O2SAT 97
--- NOTE | 2025-03-25 17:11 | P.NPUPN_ITS ---
Subjective NPU 2 Subjective: Patient presented today reporting that he is doing okay. He continues to have some resistance of the medication we discussed that there are continued reports of him having improvement from the staff. This is not where the indirect observation as well. We continued to discuss the need for him to take the medication regularly and concerns about his marijuana use. He denied any side effects to the medication. Mental Status Exam 2 MSE Comments: This is a slender versus underweight, well-developed white male in hospital scrubs with limited grooming and eye contact. His gait was within normal limits his hygiene was poor. There was no evidence of any abnormal involuntary motor movements tics or tremors appreciated. He had mild psychomotor retardation. Cooperative with exam in mild distress. Speech was mostly normal rate and decreased volume. His mood was described as better. His affect appeared congruent and brighter. His thought process was linear. His thought content showed no evident evidence of active homicidal or suicidal ideation. But there are concerns that were raised related to him having homicidal thoughts leading to the admission. He did not appear to be responding to internal stimuli. There was no clear evidence of delusional thinking. There is no evidence of overvalued ideas. His impulse control appeared limited versus impaired. His insight and judgment were limited. Vitals/I&O/Wt Last Vital Signs Temp 98.3 F 03/25/25 21:24 Pulse 98 03/25/25 21:24 Resp 18 03/25/25 21:24 BP 134/95 03/25/25 21:24 Pulse Ox 100 03/25/25 21:24 O2 Del Method Room Air 03/25/25 21:24 Weight last 48 hrs Weight 61.745 kg Data NPU 03/09/25 19:39 03/09/25 19:39 A&P Assessment and plan 1. Aggressive behavior: 2. Cannabis dependence with current use: 3. 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 He presents on a 96-hour hold with reports that he was having some aggressive possibly homicidal thoughts towards someone in his [place] which he denies. He reports that since he was here he stopped taking the medication and feels the solution to any of his problems is marijuana. 1. Encourage restarting Abilify. He continues to refuse medication and the only process by which we would be able to give him medication based on his current attitude would be. We restarted Abilify and likely will follow-up with the long-acting injection. A prescription for the Abilify Asimtufii has been sent to the outpatient pharmacy and a request for the Abilify Maintena has been sent to the inpatient pharmacy. We will wait finding out if the Abilify Asimtufii was approved. If not Abilify Maintena will be given when it arrives. 2. Continue every 15 minute checks for safety. 3. Encourage individual, group and milieu therapy. 4. Encourage sober living treatment after discharge at the highest level of care to which he is willing to commit. 5. Evaluate against the backdrop of the 96-hour hold. Filed for 21-day hold. Patient continues to have poor insight about his situation and options. Patient placed on a 21-day hold. 6. Obtain collateral information. PDMP PDMP Reviewed: Not Reviewed Involuntary Hold Information 2 Hold Status: Legal Status: 21 Day Hold Date/Time Hold Expires: 04/10/25 96 Hour Hold: 96 Hour Involuntary Admission: Yes Attestations NPU 2 Medical Necessity Statement*: Inpatient hospitalization is medically necessary and the clinically appropriate intervention at this time. We will monitor medications and make changes as indicated. Likely length of stay is 6-10 days. Coding Level of Care Code Acute Code for g Fwd Diagnoses Aggressive behavior R46.89 Cannabis dependence with current use F12.20 Major depressive disorder, recurrent, severe with psychotic symptoms F33.3
[2025-03-25 21:24] VITALS: BP 134/95; PULSE 98; RESP 18; TEMP 36.8; O2SAT 100
[2025-03-26 06:00] VITALS: BP 125/88; PULSE 76; RESP 18; TEMP 36.6; O2SAT 100
[2025-03-26 14:00] VITALS: BP 143/98; PULSE 86; RESP 18; TEMP 36.8; O2SAT 98
--- NOTE | 2025-03-26 16:52 | P.NPUPN_ITS ---
Subjective NPU 2 Subjective: The patient had continued to minimize any significant problems. He had reported that he was feeling better and minimized any problems with adhering to his outpatient medications. He had stated that he was not aware of any legal charges pending against him. He had stated that it was a misunderstanding and stated that his father had plans for him to leave the state and he stated that he was going to try to get his children back. He had alluded to having a court hearing on March 30 but again appeared somewhat unwilling to discuss it any further. He had continued to report chronic use of marijuana. He had continued to struggle with attending to routine activities of daily living and require prompting for showering. Brother reportedly buying a patient a camper to live nearby him. Mental Status Exam 2 MSE Comments: This is a slender versus underweight, well-developed white male in hospital scrubs with poor grooming and fleeting eye contact. His gait was within normal limits and his hygiene was poor. There was no evidence of any abnormal involuntary motor movements tics or tremors appreciated. He had mild psychomotor retardation. He was cooperative with exam in mild distress. Speech was mostly normal rate and decreased volume. His mood was described as okay. His affect appeared restricted in range and mood incongruent. His thought process was linear. His thought content showed no evident evidence of active homicidal or suicidal ideation. He did not appear to be responding to internal stimuli. There was no clear evidence of delusional thinking. There is no evidence of overvalued ideas. His impulse control appeared limited versus impaired. His insight and judgment were limited. Vitals/I&O/Wt Last Vital Signs Temp 98.3 F 03/26/25 14:00 Pulse 86 03/26/25 14:00 Resp 18 03/26/25 14:00 BP 143/98 03/26/25 14:00 Pulse Ox 98 03/26/25 14:00 O2 Del Method Room Air 03/26/25 06:00 Weight last 48 hrs Weight 61.745 kg Data NPU 03/09/25 19:39 03/09/25 19:39 A&P Assessment and plan 1. Aggressive behavior: 2. Cannabis dependence with current use: 3. 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 He presents on a 96-hour hold with reports that he was having some aggressive possibly homicidal thoughts towards someone in [place] which he denies. He reports that since he was here he stopped taking the medication and feels the solution to any of his problems is marijuana. 1. Abilify Asimtufii 960mg given today with patient to remain on abilify oral 10mg daily. 2. Continue every 15 minute checks for safety. 3. Encourage individual, group and milieu therapy. 4. Encourage sober living treatment after discharge at the highest level of care to which he is willing to commit. 5. Evaluate against the backdrop of the 96-hour hold. Filed for 21-day hold. Patient continues to have poor insight about his situation and options. Patient placed on a 21-day hold. 6. Obtain collateral information. PDMP PDMP Reviewed: Not Reviewed Involuntary Hold Information 2 Hold Status: Legal Status: 21 Day Hold Date/Time Hold Expires: 04/10/25 96 Hour Hold: 96 Hour Involuntary Admission: Yes Attestations NPU 2 Medical Necessity Statement*: Inpatient hospitalization is medically necessary and the clinically appropriate intervention at this time. We will monitor medications and make changes as indicated. Likely length of stay is 5-8 days. Coding Level of Care Code Acute Code for Chg Fwd Diagnoses Aggressive behavior R46.89 Cannabis dependence with current use F12.20 Major depressive disorder, recurrent, severe with psychotic symptoms F33.3
[2025-03-26 20:28] VITALS: BP 155/98; PULSE 84; RESP 18; TEMP 36.8; O2SAT 97
[2025-03-27 05:51] VITALS: BP 146/97; PULSE 68; RESP 17; TEMP 36.1; O2SAT 97
[2025-03-27] MEDS: ARIPiprazole Maintena 400 MG IM (12:06)
--- NOTE | 2025-03-27 12:06 | PC.NURSE ---
Administered pt 400mg IM Abilify in R deltoid, pt tolerated well.
[2025-03-27 14:00] VITALS: BP 134/89; PULSE 86; RESP 18; TEMP 36.9; O2SAT 97
--- NOTE | 2025-03-27 15:14 | P.NPUPN_ITS ---
Subjective NPU 2 Subjective: 34-year-old male admitted with paranoia and delusions with a significant history of cannabis dependence who continued to report minimal concerns despite significant legal charges. He had reported some difficulty falling asleep last night. He had reported that he had some arm pain after receiving his monthly Abilify Maintena today. The patient was able to attend groups. He had shown some improvement in regards to his hygiene. He had denied any hallucinations and continued to report that he was feeling better. Mental Status Exam 2 MSE Comments: This is a slender versus underweight, well-developed white male in hospital scrubs with improved grooming and fleeting eye contact. His gait was within normal limits. There was no evidence of any abnormal involuntary motor movements tics or tremors appreciated. He had mild psychomotor retardation. He was cooperative with exam in mild distress. Speech was mostly normal rate and decreased volume. His mood was described as okay. His affect was subdued. His thought process was linear. His thought content showed no evident evidence of active homicidal or suicidal ideation. He did not appear to be responding to internal stimuli. There was no clear evidence of delusional thinking. There is no evidence of overvalued ideas. His impulse control appeared limited. His insight and judgment were poor. Vitals/I&O/Wt Last Vital Signs Temp 97.0 F L 03/27/25 05:51 Pulse 68 03/27/25 05:51 Resp 17 03/27/25 05:51 BP 146/97 03/27/25 05:51 Pulse Ox 97 03/27/25 05:51 O2 Del Method Room Air 03/27/25 05:51 Data NPU 03/09/25 19:39 03/09/25 19:39 A&P Assessment and plan 1. Unspecified psychosis: 2. Aggressive behavior: 3. Cannabis dependence with current use: 4. 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 He presents on a 96-hour hold with reports that he was having some aggressive possibly homicidal thoughts towards someone in his [place] which he denies. He reports that since he was here he stopped taking the medication and feels the solution to any of his problems is marijuana. 1. Abilify Maintena 400mg given today with patient to remain on abilify oral 10mg daily. 2 month Abilify Asimtufii was not given yesterday due to availability. 2. Continue every 15 minute checks for safety. 3. Encourage individual, group and milieu therapy. 4. Encourage sober living treatment after discharge at the highest level of care to which he is willing to commit. 5. Evaluate against the backdrop of the 96-hour hold. Filed for 21-day hold. Patient continues to have poor insight about his situation and options. Patient placed on a 21-day hold. 6. Obtain collateral information. PDMP PDMP Reviewed: Not Reviewed Involuntary Hold Information 2 Hold Status: Legal Status: 21 Day Hold Date/Time Hold Expires: 04/10/25 96 Hour Hold: 96 Hour Involuntary Admission: Yes Attestations NPU 2 Medical Necessity Statement*: Inpatient hospitalization is medically necessary and the clinically appropriate intervention at this time. We will monitor medications and make changes as indicated. Likely length of stay is 3-4 days. Coding Level of Care Code Acute Code for Chg Fwd Diagnoses Unspecified psychosis F29 Aggressive behavior R46.89 Cannabis dependence with current use F12.20 Major depressive disorder, recurrent, severe with psychotic symptoms F33.3
[2025-03-27 22:00] VITALS: BP 156/96; PULSE 92; RESP 19; TEMP 37; O2SAT 98
[2025-03-28 06:00] VITALS: BP 141/98; PULSE 65; RESP 18; TEMP 36.3; O2SAT 98
[2025-03-28 14:00] VITALS: BP 127/77; PULSE 96; RESP 16; TEMP 36.9; O2SAT 98
--- NOTE | 2025-03-28 14:52 | P.NPUPN_ITS ---
Subjective NPU 2 Subjective: 34-year-old male with unspecified psycho sis admitted with prominent delusions. The patient had reported that he was feeling better. He reported some pain from the injection shot site of his shot. He reported no side effects from his medication otherwise. He had been able to attend groups. He continued to report desire to leave the hospital and attend a hearing scheduled on March 30, 2025. He had stated that he had felt better and stated that he was hopeful that he could live in a camper that his brother was getting for him. He had reported a long history of cannabis use and continued to state that he would likely use marijuana in the future despite its potential adverse consequences for him. The patient had continued to struggle with completing routine activities of daily living while requiring prompting for showering. Mental Status Exam 2 MSE Comments: This is a slender versus underweight, well-developed white male in hospital scrubs with improved grooming and fleeting eye contact. His gait was within normal limits. There was no evidence of any abnormal involuntary motor movements tics or tremors appreciated. He had mild psychomotor retardation. He was cooperative with exam in mild distress. Speech was mostly normal rate and decreased volume. His mood was described as good. His affect was nonchalant and subdued. His thought process was linear. His thought content showed no evident evidence of active homicidal or suicidal ideation. He did not appear to be responding to internal stimuli. There was no clear evidence of delusional thinking. There is no evidence of overvalued ideas. His impulse control appeared limited. His insight remained poor and judgment was poor. Vitals/I&O/Wt Last Vital Signs Temp 97.4 F L 03/28/25 06:00 Pulse 65 03/28/25 06:00 Resp 18 03/28/25 06:00 BP 141/98 03/28/25 06:00 Pulse Ox 98 03/28/25 06:00 O2 Del Method Room Air 03/28/25 06:00 Data NPU 03/09/25 19:39 03/09/25 19:39 A&P Assessment and plan 1. Unspecified psychosis: 2. Aggressive behavior: 3. Cannabis dependence with current use: 4. 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 He presents on a 96-hour hold with reports that he was having some aggressive possibly homicidal thoughts towards someone in his [place] which he denies. He reports that since he was here he stopped taking the medication and feels the solution to any of his problems is marijuana. 1. Abilify Maintena 400mg given today with patient to remain on abilify oral 10mg daily. 2. Continue every 15 minute checks for safety. 3. Encourage individual, group and milieu therapy. 4. Encourage sober living treatment after discharge at the highest level of care to which he is willing to commit. 5. Patient likely to be discharged home. PDMP PDMP Reviewed: Not Reviewed Involuntary Hold Information 2 Hold Status: Legal Status: 21 Day Hold Date/Time Hold Expires: 04/10/25 96 Hour Hold: 96 Hour Involuntary Admission: Yes Attestations NPU 2 Medical Necessity Statement*: Inpatient hospitalization is medically necessary and the clinically appropriate intervention at this time. We will monitor medications and make changes as indicated. Likely length of stay is 1-2 days. Coding Level of Care Code Acute Code for Chg Fwd Diagnoses Unspecified psychosis F29 Aggressive behavior R46.89 Cannabis dependence with current use F12.20 Major depressive disorder, recurrent, severe with psychotic symptoms F33.3
[2025-03-28 22:00] VITALS: BP 145/96; PULSE 89; RESP 19; TEMP 36.8; O2SAT 97
[2025-03-29 06:00] VITALS: BP 131/92; PULSE 75; RESP 17; TEMP 36.4; O2SAT 98
[2025-03-29] MEDS: blistex lip oint 7 gm Tube 1 APPLIC TOPICAL (09:50)
[2025-03-29 10:28] VITALS: BP 131/92; PULSE 75; RESP 17; TEMP 36.4; O2SAT 98
[2025-03-29 13:02] VITALS: BP 148/104; PULSE 112; RESP 16; TEMP 37.1; O2SAT 96
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
== END 2025-03-29 13:28 | disposition home or self-care (01) | DRG 885 ==
LOC: ER 19:51 → NP 21:51
PROVIDERS: Admitting Provider Psychiatry & Neurology Psychiatry; Emergency Provider Physician Assistant; Visit Provider Psychiatry & Neurology Psychiatry
DX: F33.3 Major depressive disorder, recurrent, severe with psychotic symptoms (principal); F12.20 Cannabis dependence, uncomplicated; F17.210 Nicotine dependence, cigarettes, uncomplicated; R63.6 Underweight; Z68.21 Body mass index [BMI] 21.0-21.9, adult
CPT/HCPCS: 36415; 80053; 80306; 80307; 81001; 85025; 93005; 96372; 97150; 97165; 99284; J9999